=== PATIENT | male | born 1965 | race Caucasian/White ===

== ENCOUNTER 2018-01-19 13:13 | Inpatient (IN) | payer OTHER ==
[~2018-01-19] VITALS: Ht 175.3 cm; Wt 63.8 kg
[~2018-01-19 13:13] MED LIST: CITA-106 PO; DIVA500T52 PO; DOCU100C33 PO; LEVO50TA4 PO; OLAN15TA2 PO; OXYB5 PO; PANT40TA25 PO; QUET200T PO; SIMV20TA6 PO
[2018-01-19] MEDS ORDERED: SODIUM CHLORIDE 0.9% 1,000 ML IV ONE ×3 (14:01→16:00)
[2018-01-19 14:14] LABS: GLUCOSE,POINT OF CARE 96 MG/DL (70-110)
[2018-01-19] MEDS ORDERED: ACETAMINOPHEN 1000 MG/ISO-OSM 100 ML IV ONE (14:15)
[2018-01-19 14:46] LABS: BASOPHILS % (AUTO) 0.4 % (0.0-2.0); EOSINOPHILS % (AUTO) 0.2 % (1.0-6.0); HEMOGLOBIN 13.2 g/dL (13.5-17.5); LYMPHOCYTES # (AUTO) 1.3 K/uL (1.0-4.8); LYMPHOCYTES % (AUTO) 9.3 % (22.0-44.0); MEAN CORPUSCULAR HEMOGLOBIN 31.9 pg (26.0-34.0); MEAN CORPUSCULAR VOLUME 97 fL (80-100); MONOCYTES # (AUTO) 0.4 K/uL (0.1-1.0); MONOCYTES % (AUTO) 3.2 % (2.0-9.0); PLATELET COUNT (AUTO) 227 K/uL (150-450); RED BLOOD CELL COUNT(AUTO) 4.13 MIL/uL (4.50-5.90)
[2018-01-19 14:49] LABS: NEUTROPHILS % (AUTO) 86.9 % (40.0-70.0)
[2018-01-19 14:58] LABS: ANION GAP 10 mmol/L (8-16); CALCIUM, TOTAL 9.3 mg/dL (8.8-10.5); CARBON DIOXIDE 26 mmol/L (22-29); CHLORIDE 101 mmol/L (98-107); CREATININE 1.09 mg/dL (0.60-1.30); GLOMERULAR FILTR. RATE CALC > 60 mL/min (>60); GLUCOSE,RANDOM 74 mg/dL (70-110); POTASSIUM 3.9 mmol/L (3.5-5.1); SODIUM SERUM 137 mmol/L (136-145); UREA NITROGEN, BLOOD 13 mg/dL (7-18)
[2018-01-19 15:05] LABS: ALANINE AMINOTRANSFERASE 22 U/L (12-78); ALBUMIN 2.4 g/dL (3.4-5.0); ALKALINE PHOSPHATASE 117 U/L (46-116); ASPARTATE AMINOTRANSFERASE 16 U/L (15-37); BILIRUBIN,TOTAL 0.3 mg/dL (0.1-1.0); TOTAL PROTEIN, SERUM 6.7 g/dL (6.4-8.2)
[2018-01-19 15:10] LABS: B-TYPE NATRIURETIC PEPTIDE 104 pg/mL (0-100)
[2018-01-19] MEDS ORDERED: PIPERACILLIN/TAZO 3.375 GM/D5W 50 ML IV ONE (15:15)
[2018-01-19] MEDS ORDERED: VANCOMYCIN HCL 1 GM/D5% WATER 200 ML IV ONE (15:15)
[2018-01-19 15:23] LABS: APPEARANCE,URINE CLOUDY (CLEAR); BILIRUBIN,URINE NEGATIVE (NEGATIVE); GLUCOSE, URINE (UA) NEGATIVE (NEGATIVE); KETONES,URINE NEGATIVE (NEGATIVE); LEUKOCYTE ESTERASE ,URINE LARGE (NEGATIVE); NITRATE,URINE POSITIVE (NEGATIVE); OCCULT BLOOD,URINE MODERATE (NEGATIVE); PH,URINE 6.5 (5.0-8.0); PROTEIN,URINE SEE CONFIRM (NEGATIVE)
[2018-01-19 15:27] LABS: INR 1.1 (0.9-1.1); PROTHROMBIN TIME 11.1 SEC (9.4-11.6)
[2018-01-19 15:55] LABS: SULFOSALICYLIC ACID,URINE 3+ (Negative)
[2018-01-19 15:56] LABS: WBC,URINE 51-100 /HPF (0-5)
[2018-01-19 15:57] LABS: BACTERIA,URINE Many /HPF (None Seen); SQUAMOUS EPITHELIAL CELL,UR Rare /LPF (None Seen)
[2018-01-19] MEDS ORDERED: ACETAMINOPHEN 650 MG RECTAL SUPPOSITORY PR ONE (16:00)
[2018-01-19] MEDS ORDERED: ONDANSETRON HCL 4 MG/2 ML VIAL IVP PRN ×2 (16:30→18:00)
[2018-01-19] MEDS ORDERED: ACETAMINOPHEN 325 MG TABLET PO PRN (16:30)
[2018-01-19] MEDS ORDERED: 0.9% SODIUM CHLORIDE 10 ML SYRINGE IVP PRN (16:30)
[2018-01-19 18:00] VITALS: BP 105/46
[2018-01-19] MEDS ORDERED: HYDROCODONE/ACETAMINOPHEN 5-325 MG TABLET PO PRN (18:00)
[2018-01-19] MEDS ORDERED: ZOLPIDEM TARTRATE 5 MG TABLET PO PRN (18:00)
[2018-01-19] MEDS ORDERED: MORPHINE SULFATE 4 MG/ML SYRINGE IVP PRN (18:00)
[2018-01-19] MEDS ORDERED: BISACODYL 10 MG RECTAL RECTAL SUPPOSITORY PR PRN (18:00)
[2018-01-19 19:13] LABS: ABG A-A DIFF O2 56.5 mmHg (10-20.0); ABG BASE EXCESS -4.7 mmol/L (-2.0-3.0); ABG CARBOXYHEMOGLOBIN 2.1 % (0.0-1.5); ABG HCO3 21.2 mmol/L (22.0-26.0); ABG METHEMOGLOBIN 0.1 % (0.0-1.5); ABG OXYGEN CONTENT 16.6 mL/dL (15.0-23.0); ABG OXYHEMOGLOBIN 95.8 % (94.0-100.0); ABG PCO2 36 mmHg (35-45); ABG PH 7.375 (7.35-7.450); ABG TOTAL HEMOGLOBIN 12.2 G/dL (12.0-18.0); O2 DEVICE,BLOOD GAS CANNULA (ROOM AIR); PO2, ARTERIAL BG 114.5 mmHg (84.0-92.0); SITE, BLOOD GAS RT RADIAL; SOURCE, BLOOD GAS ARTERIAL; TEMPERATURE, FAHRENHEIT, BG 100.3 FAHREN (96.0-98.6)
[2018-01-19 20:00] VITALS: BP 95/50
[2018-01-19] MEDS: DOCUSATE SODIUM 100 MG CAPSULE PO SCH (20:42)
[2018-01-19] MEDS: SODIUM CHLORIDE 0.9% 1,000 ML IV SCH (20:42)
[2018-01-19] MEDS: PIPERACILLIN/TAZO 3.375 GM/D5W 50 ML IV SCH (22:47)
[2018-01-19] MEDS: HEPARIN SODIUM,PORCINE 5,000 UNITS/ML VIAL SQ SCH (23:50)
[2018-01-20] VITALS (7 sets, daily range): BP systolic 94–126; BP diastolic 47–64
[2018-01-20] MEDS: PIPERACILLIN/TAZO 3.375 GM/D5W 50 ML IV SCH (04:29)
[2018-01-20] MEDS ORDERED: VANCOMYCIN HCL 1.25 GM in DEXTROSE 5%-WATER 250 ML IV ONE (07:30)
[2018-01-20] MEDS ORDERED: PIPERACILLIN/TAZO 3.375 GM/D5W 50 ML IV SCH (09:00)
[2018-01-20 09:03] LABS: BASOPHILS % (AUTO) 0.1 % (0.0-2.0); EOSINOPHILS % (AUTO) 0.2 % (1.0-6.0); HEMATOCRIT 40.4 % (41-53); HEMOGLOBIN 13.1 g/dL (13.5-17.5); LYMPHOCYTES # (AUTO) 1.8 K/uL (1.0-4.8); MEAN CORPUSCULAR HEMOGLOBIN 31.9 pg (26.0-34.0); MEAN CORPUSCULAR HGB CONC 32.4 G/dL (31.0-37.0); MEAN CORPUSCULAR VOLUME 98 fL (80-100); MONOCYTES # (AUTO) 2.9 K/uL (0.1-1.0); MONOCYTES % (AUTO) 13.2 % (2.0-9.0); NEUTROPHILS # (AUTO) 17.2 K/uL (1.8-7.7); NEUTROPHILS % (AUTO) 78.5 % (40.0-70.0); PLATELET COUNT (AUTO) 189 K/uL (150-450); RED BLOOD CELL COUNT(AUTO) 4.11 MIL/uL (4.50-5.90); RED CELL DISTRIBUTION WIDTH 15.2 % (11.5-14.5)
[2018-01-20 09:14] LABS: ANION GAP 7 mmol/L (8-16); CALCIUM, TOTAL 8.3 mg/dL (8.8-10.5); CARBON DIOXIDE 26 mmol/L (22-29); CHLORIDE 110 mmol/L (98-107); CREATININE 1.18 mg/dL (0.60-1.30); GLOMERULAR FILTR. RATE CALC > 60 mL/min (>60); GLUCOSE,RANDOM 97 mg/dL (70-110); POTASSIUM 4.7 mmol/L (3.5-5.1); SODIUM SERUM 143 mmol/L (136-145); UREA NITROGEN, BLOOD 13 mg/dL (7-18)
[2018-01-20 09:21] LABS: ALANINE AMINOTRANSFERASE 25 U/L (12-78); ALBUMIN 1.9 g/dL (3.4-5.0); ALKALINE PHOSPHATASE 118 U/L (46-116); ASPARTATE AMINOTRANSFERASE 31 U/L (15-37); BILIRUBIN,TOTAL 0.3 mg/dL (0.1-1.0); TOTAL PROTEIN, SERUM 5.6 g/dL (6.4-8.2)
[2018-01-20] MEDS: PANTOPRAZOLE SODIUM 40 MG/VIAL IVP SCH (09:57)
[2018-01-20] MEDS: HEPARIN SODIUM,PORCINE 5,000 UNITS/ML VIAL SQ SCH ×2 (09:58→16:12)
[2018-01-20] MEDS: ACETAMINOPHEN 325 MG TABLET PO PRN ×2 (09:59→20:26)
[2018-01-20] MEDS: DOCUSATE SODIUM 100 MG CAPSULE PO SCH ×2 (09:59→20:26)
[2018-01-20] MEDS: SODIUM CHLORIDE 0.9% 1,000 ML IV SCH (11:01)
[2018-01-20] MEDS: VANCOMYCIN HCL 1 GM/D5% WATER 200 ML IV SCH (18:47)
[2018-01-21] VITALS (7 sets, daily range): BP systolic 116–144; BP diastolic 56–78
[2018-01-21] MEDS: HEPARIN SODIUM,PORCINE 5,000 UNITS/ML VIAL SQ SCH ×4 (00:20→23:30)
[2018-01-21] MEDS: VANCOMYCIN HCL 1 GM/D5% WATER 200 ML IV SCH ×2 (06:09→18:15)
[2018-01-21 06:10] LABS: BASOPHILS % (AUTO) 0.1 % (0.0-2.0); EOSINOPHILS % (AUTO) 0.3 % (1.0-6.0); HEMATOCRIT 33.9 % (41-53); HEMOGLOBIN 11.6 g/dL (13.5-17.5); LYMPHOCYTES # (AUTO) 1.6 K/uL (1.0-4.8); LYMPHOCYTES % (AUTO) 7.7 % (22.0-44.0); MEAN CORPUSCULAR HEMOGLOBIN 33.6 pg (26.0-34.0); MEAN CORPUSCULAR HGB CONC 34.2 G/dL (31.0-37.0); MEAN CORPUSCULAR VOLUME 98 fL (80-100); MONOCYTES # (AUTO) 2.8 K/uL (0.1-1.0); MONOCYTES % (AUTO) 13.6 % (2.0-9.0); NEUTROPHILS # (AUTO) 15.9 K/uL (1.8-7.7); NEUTROPHILS % (AUTO) 78.3 % (40.0-70.0); PLATELET COUNT (AUTO) 157 K/uL (150-450); RED BLOOD CELL COUNT(AUTO) 3.45 MIL/uL (4.50-5.90); RED CELL DISTRIBUTION WIDTH 14.9 % (11.5-14.5)
[2018-01-21 06:23] LABS: ALANINE AMINOTRANSFERASE 24 U/L (12-78); ALBUMIN 1.7 g/dL (3.4-5.0); ALKALINE PHOSPHATASE 121 U/L (46-116); ANION GAP 8 mmol/L (8-16); ASPARTATE AMINOTRANSFERASE 21 U/L (15-37); BILIRUBIN,TOTAL 0.3 mg/dL (0.1-1.0); CALCIUM, TOTAL 8.3 mg/dL (8.8-10.5); CARBON DIOXIDE 26 mmol/L (22-29); CHLORIDE 109 mmol/L (98-107); CREATININE 1.11 mg/dL (0.60-1.30); GLOMERULAR FILTR. RATE CALC > 60 mL/min (>60); GLUCOSE,RANDOM 99 mg/dL (70-110); POTASSIUM 3.6 mmol/L (3.5-5.1); SODIUM SERUM 143 mmol/L (136-145); TOTAL PROTEIN, SERUM 5.3 g/dL (6.4-8.2); UREA NITROGEN, BLOOD 15 mg/dL (7-18)
[2018-01-21] MEDS: DOCUSATE SODIUM 100 MG CAPSULE PO SCH ×2 (09:18→20:22)
[2018-01-21] MEDS: PANTOPRAZOLE SODIUM 40 MG/VIAL IVP SCH (09:18)
[2018-01-21] MEDS: SODIUM CHLORIDE 0.9% 1,000 ML IV SCH (12:18)
[2018-01-21] MEDS: IPRATROPIUM BROMIDE 0.5 MG/2.5 ML NEB SOLUTION NEB PRN (16:21)
[2018-01-21] MEDS: ALBUTEROL SULFATE 2.5 MG/0.5 ML NEB SOLUTION NEB PRN (16:21)
[2018-01-21] MEDS: MAGNESIUM HYDROXIDE SUSPENSION 30 ML UDCUP PO PRN (16:39)
[2018-01-21] MEDS: PIPERACILLIN/TAZO 3.375 GM/D5W 50 ML IV SCH (20:19)
[2018-01-21] MEDS: MetroNIDAZOLE 500 MG/NACL 100 ML IV SCH (20:23)
[2018-01-22] MEDS: PIPERACILLIN/TAZO 3.375 GM/D5W 50 ML IV SCH ×4 (02:34→20:07)
[2018-01-22] MEDS: ALBUTEROL SULFATE 2.5 MG/0.5 ML NEB SOLUTION NEB PRN ×2 (03:13→17:05)
[2018-01-22] MEDS: IPRATROPIUM BROMIDE 0.5 MG/2.5 ML NEB SOLUTION NEB PRN ×2 (03:14→17:05)
[2018-01-22 04:38] VITALS: BP 141/76
[2018-01-22] MEDS: MetroNIDAZOLE 500 MG/NACL 100 ML IV SCH (04:47)
[2018-01-22 06:27] LABS: BASOPHILS % (AUTO) 0.2 % (0.0-2.0); EOSINOPHILS % (AUTO) 0.8 % (1.0-6.0); HEMATOCRIT 33.4 % (41-53); HEMOGLOBIN 11.3 g/dL (13.5-17.5); LYMPHOCYTES # (AUTO) 1.6 K/uL (1.0-4.8); LYMPHOCYTES % (AUTO) 6.5 % (22.0-44.0); MEAN CORPUSCULAR HEMOGLOBIN 32.8 pg (26.0-34.0); MEAN CORPUSCULAR VOLUME 97 fL (80-100); MONOCYTES # (AUTO) 2.4 K/uL (0.1-1.0); MONOCYTES % (AUTO) 9.6 % (2.0-9.0); NEUTROPHILS # (AUTO) 20.6 K/uL (1.8-7.7); NEUTROPHILS % (AUTO) 82.9 % (40.0-70.0); PLATELET COUNT (AUTO) 174 K/uL (150-450); RED BLOOD CELL COUNT(AUTO) 3.46 MIL/uL (4.50-5.90); RED CELL DISTRIBUTION WIDTH 15.2 % (11.5-14.5)
[2018-01-22] MEDS: VANCOMYCIN HCL 1 GM/D5% WATER 200 ML IV SCH (06:29)
[2018-01-22 06:51] LABS: ALANINE AMINOTRANSFERASE 25 U/L (12-78); ALBUMIN 1.7 g/dL (3.4-5.0); ALKALINE PHOSPHATASE 155 U/L (46-116); ANION GAP 6 mmol/L (8-16); ASPARTATE AMINOTRANSFERASE 20 U/L (15-37); BILIRUBIN,TOTAL 0.5 mg/dL (0.1-1.0); CALCIUM, TOTAL 8.3 mg/dL (8.8-10.5); CARBON DIOXIDE 28 mmol/L (22-29); CHLORIDE 108 mmol/L (98-107); CREATININE 1.01 mg/dL (0.60-1.30); GLOMERULAR FILTR. RATE CALC > 60 mL/min (>60); GLUCOSE,RANDOM 102 mg/dL (70-110); POTASSIUM 3.9 mmol/L (3.5-5.1); SODIUM SERUM 142 mmol/L (136-145); TOTAL PROTEIN, SERUM 5.5 g/dL (6.4-8.2); UREA NITROGEN, BLOOD 14 mg/dL (7-18)
[2018-01-22 07:55] LABS: VANCOMYCIN,RANDOM 12.3 mcg/mL (25.0-50.0)
[2018-01-22] MEDS: MAGNESIUM HYDROXIDE SUSPENSION 30 ML UDCUP PO PRN (07:56)
[2018-01-22] MEDS: HEPARIN SODIUM,PORCINE 5,000 UNITS/ML VIAL SQ SCH ×3 (07:56→23:17)
[2018-01-22] MEDS: DOCUSATE SODIUM 100 MG CAPSULE PO SCH ×2 (07:56→21:42)
[2018-01-22] MEDS: PANTOPRAZOLE SODIUM 40 MG/VIAL IVP SCH (07:56)
[2018-01-22 08:03] VITALS: BP 138/78
[2018-01-22 11:00] VITALS: BP 134/68
[2018-01-22 15:10] VITALS: BP 132/64
[2018-01-22] MEDS ORDERED: VANCOMYCIN HCL 1 GM/D5% WATER 200 ML IV SCH (16:00)
[2018-01-22 19:30] VITALS: BP 131/66
[2018-01-22] MEDS ORDERED: ZOLPIDEM TARTRATE 5 MG TABLET PO PRN (20:00)
[2018-01-22] MEDS ORDERED: LORazepam 1 MG TABLET PO PRN (20:00)
[2018-01-22] MEDS ORDERED: QUEtiapine FUMARATE 100 MG TABLET PO PRN (20:00)
[2018-01-22] MEDS: DIVALPROEX SODIUM 500 MG ER TABLET PO SCH (21:42)
[2018-01-22] MEDS: OLANZapine 10 MG TABLET PO SCH (21:42)
[2018-01-22 23:30] VITALS: BP 136/62
[2018-01-23] MEDS ORDERED: SODIUM CHLORIDE 0.9% 500 ML IV ONE (01:10)
[2018-01-23] MEDS: PIPERACILLIN/TAZO 3.375 GM/D5W 50 ML IV SCH ×3 (01:12→14:07)
[2018-01-23 03:15] VITALS: BP 134/67
[2018-01-23 07:00] LABS: BASOPHILS % (AUTO) 0.4 % (0.0-2.0); HEMATOCRIT 33.7 % (41-53); HEMOGLOBIN 11.3 g/dL (13.5-17.5); LYMPHOCYTES # (AUTO) 2.3 K/uL (1.0-4.8); LYMPHOCYTES % (AUTO) 9.8 % (22.0-44.0); MEAN CORPUSCULAR HEMOGLOBIN 31.9 pg (26.0-34.0); MEAN CORPUSCULAR HGB CONC 33.6 G/dL (31.0-37.0); MEAN CORPUSCULAR VOLUME 95 fL (80-100); MONOCYTES # (AUTO) 2.3 K/uL (0.1-1.0); NEUTROPHILS # (AUTO) 18.4 K/uL (1.8-7.7); NEUTROPHILS % (AUTO) 78.8 % (40.0-70.0); PLATELET COUNT (AUTO) 216 K/uL (150-450); RED BLOOD CELL COUNT(AUTO) 3.55 MIL/uL (4.50-5.90); RED CELL DISTRIBUTION WIDTH 14.8 % (11.5-14.5)
[2018-01-23 07:25] LABS: ALANINE AMINOTRANSFERASE 27 U/L (12-78); ALBUMIN 1.7 g/dL (3.4-5.0); ALKALINE PHOSPHATASE 149 U/L (46-116); ANION GAP 6 mmol/L (8-16); ASPARTATE AMINOTRANSFERASE 27 U/L (15-37); BILIRUBIN,TOTAL 0.5 mg/dL (0.1-1.0); CALCIUM, TOTAL 8.4 mg/dL (8.8-10.5); CARBON DIOXIDE 30 mmol/L (22-29); CHLORIDE 107 mmol/L (98-107); CREATININE 1.12 mg/dL (0.60-1.30); GLOMERULAR FILTR. RATE CALC > 60 mL/min (>60); GLUCOSE,RANDOM 90 mg/dL (70-110); POTASSIUM 3.8 mmol/L (3.5-5.1); SODIUM SERUM 143 mmol/L (136-145); TOTAL PROTEIN, SERUM 5.8 g/dL (6.4-8.2); UREA NITROGEN, BLOOD 15 mg/dL (7-18)
[2018-01-23] MEDS: HEPARIN SODIUM,PORCINE 5,000 UNITS/ML VIAL SQ SCH ×3 (07:51→23:18)
[2018-01-23] MEDS: CITALOPRAM HYDROBROMIDE 20 MG TABLET PO SCH (07:52)
[2018-01-23] MEDS: DOCUSATE SODIUM 100 MG CAPSULE PO SCH ×2 (07:52→19:50)
[2018-01-23 09:28] VITALS: BP 131/64
[2018-01-23 12:05] VITALS: BP 134/68
[2018-01-23] MEDS: IPRATROPIUM BROMIDE 0.5 MG/2.5 ML NEB SOLUTION NEB PRN (12:42)
[2018-01-23] MEDS: ALBUTEROL SULFATE 2.5 MG/0.5 ML NEB SOLUTION NEB PRN (12:42)
[2018-01-23 15:05] VITALS: BP 141/78
[2018-01-23] MEDS: CEFUROXIME SODIUM 1.5 GM in DEXTROSE 5%-WATER 50 ML IV SCH (19:50)
[2018-01-23] MEDS: MetroNIDAZOLE 500 MG TABLET PO SCH (19:50)
[2018-01-23] MEDS: OLANZapine 10 MG TABLET PO SCH (19:50)
[2018-01-23] MEDS: DIVALPROEX SODIUM 500 MG ER TABLET PO SCH (19:51)
[2018-01-23 20:00] VITALS: BP 143/80
[2018-01-23 23:15] VITALS: BP 124/78
[2018-01-24] MEDS: CEFUROXIME SODIUM 1.5 GM in DEXTROSE 5%-WATER 50 ML IV SCH ×3 (04:00→20:21)
[2018-01-24 04:30] VITALS: BP 138/79
[2018-01-24 05:59] LABS: BASOPHILS % (AUTO) 0.3 % (0.0-2.0); EOSINOPHILS % (AUTO) 0.7 % (1.0-6.0); HEMOGLOBIN 11.5 g/dL (13.5-17.5); MEAN CORPUSCULAR HEMOGLOBIN 32.2 pg (26.0-34.0); MEAN CORPUSCULAR HGB CONC 33.8 G/dL (31.0-37.0); MEAN CORPUSCULAR VOLUME 95 fL (80-100); MONOCYTES # (AUTO) 2.3 K/uL (0.1-1.0); MONOCYTES % (AUTO) 10.3 % (2.0-9.0); NEUTROPHILS % (AUTO) 79.7 % (40.0-70.0); PLATELET COUNT (AUTO) 266 K/uL (150-450); RED BLOOD CELL COUNT(AUTO) 3.57 MIL/uL (4.50-5.90)
[2018-01-24 06:13] LABS: ALANINE AMINOTRANSFERASE 26 U/L (12-78); ALBUMIN 1.7 g/dL (3.4-5.0); ALKALINE PHOSPHATASE 137 U/L (46-116); ANION GAP 7 mmol/L (8-16); ASPARTATE AMINOTRANSFERASE 27 U/L (15-37); BILIRUBIN,TOTAL 0.4 mg/dL (0.1-1.0); CALCIUM, TOTAL 8.2 mg/dL (8.8-10.5); CARBON DIOXIDE 29 mmol/L (22-29); CHLORIDE 108 mmol/L (98-107); CREATININE 1.11 mg/dL (0.60-1.30); GLOMERULAR FILTR. RATE CALC > 60 mL/min (>60); GLUCOSE,RANDOM 103 mg/dL (70-110); POTASSIUM 3.5 mmol/L (3.5-5.1); SODIUM SERUM 144 mmol/L (136-145); TOTAL PROTEIN, SERUM 5.8 g/dL (6.4-8.2); UREA NITROGEN, BLOOD 15 mg/dL (7-18); VANCOMYCIN,RANDOM 3.1 mcg/mL (25.0-50.0)
[2018-01-24 08:01] VITALS: BP 136/73
[2018-01-24] MEDS: CITALOPRAM HYDROBROMIDE 20 MG TABLET PO SCH (08:55)
[2018-01-24] MEDS: MetroNIDAZOLE 500 MG TABLET PO SCH ×3 (08:55→20:21)
[2018-01-24] MEDS: HEPARIN SODIUM,PORCINE 5,000 UNITS/ML VIAL SQ SCH ×3 (08:55→23:06)
[2018-01-24] MEDS: DOCUSATE SODIUM 100 MG CAPSULE PO SCH ×2 (08:55→20:21)
[2018-01-24 12:00] VITALS: BP 132/71
[2018-01-24 14:48] VITALS: BP 123/59
[2018-01-24 19:55] VITALS: BP 123/65
[2018-01-24] MEDS: DIVALPROEX SODIUM 500 MG ER TABLET PO SCH (20:21)
[2018-01-24] MEDS: OLANZapine 10 MG TABLET PO SCH (20:21)
[2018-01-24 23:41] VITALS: BP 144/83
[2018-01-25 04:35] VITALS: BP 142/78
[2018-01-25] MEDS: CEFUROXIME SODIUM 1.5 GM in DEXTROSE 5%-WATER 50 ML IV SCH ×3 (04:37→20:46)
[2018-01-25 05:57] LABS: BASOPHILS % (AUTO) 0.2 % (0.0-2.0); EOSINOPHILS % (AUTO) 0.9 % (1.0-6.0); HEMATOCRIT 34.7 % (41-53); HEMOGLOBIN 11.6 g/dL (13.5-17.5); LYMPHOCYTES # (AUTO) 2.8 K/uL (1.0-4.8); LYMPHOCYTES % (AUTO) 11.7 % (22.0-44.0); MEAN CORPUSCULAR HEMOGLOBIN 31.6 pg (26.0-34.0); MEAN CORPUSCULAR HGB CONC 33.3 G/dL (31.0-37.0); MEAN CORPUSCULAR VOLUME 95 fL (80-100); MONOCYTES # (AUTO) 2.3 K/uL (0.1-1.0); MONOCYTES % (AUTO) 9.7 % (2.0-9.0); NEUTROPHILS # (AUTO) 18.2 K/uL (1.8-7.7); NEUTROPHILS % (AUTO) 77.5 % (40.0-70.0); PLATELET COUNT (AUTO) 326 K/uL (150-450); RED BLOOD CELL COUNT(AUTO) 3.66 MIL/uL (4.50-5.90)
[2018-01-25 06:10] LABS: ALANINE AMINOTRANSFERASE 20 U/L (12-78); ALBUMIN 1.7 g/dL (3.4-5.0); ALKALINE PHOSPHATASE 131 U/L (46-116); ANION GAP 7 mmol/L (8-16); ASPARTATE AMINOTRANSFERASE 14 U/L (15-37); BILIRUBIN,TOTAL 0.3 mg/dL (0.1-1.0); CALCIUM, TOTAL 8.5 mg/dL (8.8-10.5); CARBON DIOXIDE 29 mmol/L (22-29); CHLORIDE 108 mmol/L (98-107); GLOMERULAR FILTR. RATE CALC > 60 mL/min (>60); GLUCOSE,RANDOM 101 mg/dL (70-110); POTASSIUM 3.6 mmol/L (3.5-5.1); SODIUM SERUM 144 mmol/L (136-145); TOTAL PROTEIN, SERUM 6.1 g/dL (6.4-8.2); UREA NITROGEN, BLOOD 16 mg/dL (7-18)
[2018-01-25 07:42] VITALS: BP 143/73
[2018-01-25] MEDS: MetroNIDAZOLE 500 MG TABLET PO SCH ×3 (10:02→20:46)
[2018-01-25] MEDS: HEPARIN SODIUM,PORCINE 5,000 UNITS/ML VIAL SQ SCH ×3 (10:02→23:46)
[2018-01-25] MEDS: CITALOPRAM HYDROBROMIDE 20 MG TABLET PO SCH (10:02)
[2018-01-25] MEDS: DOCUSATE SODIUM 100 MG CAPSULE PO SCH ×2 (10:02→20:46)
[2018-01-25 11:08] VITALS: BP 129/69
[2018-01-25 15:18] VITALS: BP 123/60
[2018-01-25] MEDS ORDERED: SODIUM CHLORIDE 0.9% 100 ML ONE (16:24)
[2018-01-25] MEDS ORDERED: IOVERSOL 320 MG/ML 100 ML VIAL ONE (16:24)
[2018-01-25] MEDS ORDERED: BARIUM SULFATE 0.1% SUSPENSION 450 ML BOTTLE ONE ×2 (16:25)
[2018-01-25 19:28] VITALS: BP 139/82
[2018-01-25] MEDS: DIVALPROEX SODIUM 500 MG ER TABLET PO SCH (20:46)
[2018-01-25] MEDS: OLANZapine 10 MG TABLET PO SCH (20:46)
[2018-01-25 23:57] VITALS: BP 135/73
[2018-01-26 03:18] VITALS: BP 130/72
[2018-01-26] MEDS: CEFUROXIME SODIUM 1.5 GM in DEXTROSE 5%-WATER 50 ML IV SCH ×3 (03:32→20:56)
[2018-01-26 05:44] LABS: BASOPHILS % (AUTO) 0.9 % (0.0-2.0); EOSINOPHILS % (AUTO) 1.1 % (1.0-6.0); HEMATOCRIT 35.2 % (41-53); HEMOGLOBIN 11.8 g/dL (13.5-17.5); LYMPHOCYTES # (AUTO) 2.7 K/uL (1.0-4.8); MEAN CORPUSCULAR HEMOGLOBIN 31.4 pg (26.0-34.0); MEAN CORPUSCULAR HGB CONC 33.7 G/dL (31.0-37.0); MEAN CORPUSCULAR VOLUME 93 fL (80-100); MONOCYTES # (AUTO) 1.8 K/uL (0.1-1.0); MONOCYTES % (AUTO) 8.7 % (2.0-9.0); NEUTROPHILS % (AUTO) 76.3 % (40.0-70.0); PLATELET COUNT (AUTO) 401 K/uL (150-450); RED BLOOD CELL COUNT(AUTO) 3.77 MIL/uL (4.50-5.90); RED CELL DISTRIBUTION WIDTH 15.2 % (11.5-14.5)
[2018-01-26 06:03] LABS: ALANINE AMINOTRANSFERASE 22 U/L (12-78); ALBUMIN 1.9 g/dL (3.4-5.0); ALKALINE PHOSPHATASE 120 U/L (46-116); ANION GAP 6 mmol/L (8-16); ASPARTATE AMINOTRANSFERASE 19 U/L (15-37); BILIRUBIN,TOTAL 0.3 mg/dL (0.1-1.0); CALCIUM, TOTAL 8.3 mg/dL (8.8-10.5); CARBON DIOXIDE 31 mmol/L (22-29); CHLORIDE 108 mmol/L (98-107); GLOMERULAR FILTR. RATE CALC > 60 mL/min (>60); GLUCOSE,RANDOM 96 mg/dL (70-110); POTASSIUM 3.9 mmol/L (3.5-5.1); SODIUM SERUM 145 mmol/L (136-145); TOTAL PROTEIN, SERUM 6.4 g/dL (6.4-8.2); UREA NITROGEN, BLOOD 16 mg/dL (7-18)
[2018-01-26 07:29] VITALS: BP 133/82
[2018-01-26] MEDS: MetroNIDAZOLE 500 MG TABLET PO SCH ×3 (08:58→20:47)
[2018-01-26] MEDS: CITALOPRAM HYDROBROMIDE 20 MG TABLET PO SCH (08:58)
[2018-01-26] MEDS: DOCUSATE SODIUM 100 MG CAPSULE PO SCH ×2 (08:58→20:46)
[2018-01-26] MEDS: HEPARIN SODIUM,PORCINE 5,000 UNITS/ML VIAL SQ SCH ×2 (08:59→17:34)
[2018-01-26 10:45] VITALS: BP 139/72
[2018-01-26 15:24] VITALS: BP 110/64
[2018-01-26 20:13] VITALS: BP 131/82
[2018-01-26] MEDS: DIVALPROEX SODIUM 500 MG ER TABLET PO SCH (20:47)
[2018-01-26] MEDS: OLANZapine 10 MG TABLET PO SCH (20:47)
[2018-01-27] VITALS (7 sets, daily range): BP systolic 125–141; BP diastolic 64–80
[2018-01-27] MEDS: HEPARIN SODIUM,PORCINE 5,000 UNITS/ML VIAL SQ SCH ×4 (00:51→23:42)
[2018-01-27] MEDS: CEFUROXIME SODIUM 1.5 GM in DEXTROSE 5%-WATER 50 ML IV SCH ×3 (04:59→20:01)
[2018-01-27 06:55] LABS: ALANINE AMINOTRANSFERASE 21 U/L (12-78); ALBUMIN 2.1 g/dL (3.4-5.0); ALKALINE PHOSPHATASE 112 U/L (46-116); ANION GAP 6 mmol/L (8-16); ASPARTATE AMINOTRANSFERASE 19 U/L (15-37); BILIRUBIN,TOTAL 0.3 mg/dL (0.1-1.0); CALCIUM, TOTAL 8.7 mg/dL (8.8-10.5); CARBON DIOXIDE 31 mmol/L (22-29); CHLORIDE 107 mmol/L (98-107); CREATININE 1.08 mg/dL (0.60-1.30); GLOMERULAR FILTR. RATE CALC > 60 mL/min (>60); GLUCOSE,RANDOM 97 mg/dL (70-110); POTASSIUM 4.1 mmol/L (3.5-5.1); SODIUM SERUM 144 mmol/L (136-145); TOTAL PROTEIN, SERUM 6.7 g/dL (6.4-8.2); UREA NITROGEN, BLOOD 20 mg/dL (7-18); VALPROIC ACID 38 mcg/mL (50-100)
[2018-01-27 07:00] LABS: BASOPHILS % (AUTO) 0.7 % (0.0-2.0); EOSINOPHILS % (AUTO) 1.6 % (1.0-6.0); HEMATOCRIT 37.2 % (41-53); HEMOGLOBIN 12.2 g/dL (13.5-17.5); LYMPHOCYTES # (AUTO) 2.8 K/uL (1.0-4.8); LYMPHOCYTES % (AUTO) 17.9 % (22.0-44.0); MEAN CORPUSCULAR HGB CONC 32.8 G/dL (31.0-37.0); MEAN CORPUSCULAR VOLUME 95 fL (80-100); MONOCYTES # (AUTO) 1.7 K/uL (0.1-1.0); MONOCYTES % (AUTO) 10.9 % (2.0-9.0); NEUTROPHILS # (AUTO) 10.6 K/uL (1.8-7.7); NEUTROPHILS % (AUTO) 68.9 % (40.0-70.0); PLATELET COUNT (AUTO) 451 K/uL (150-450); RED BLOOD CELL COUNT(AUTO) 3.93 MIL/uL (4.50-5.90); RED CELL DISTRIBUTION WIDTH 15.7 % (11.5-14.5)
[2018-01-27] MEDS: CITALOPRAM HYDROBROMIDE 20 MG TABLET PO SCH (08:52)
[2018-01-27] MEDS: MetroNIDAZOLE 500 MG TABLET PO SCH ×3 (08:52→20:26)
[2018-01-27] MEDS: DOCUSATE SODIUM 100 MG CAPSULE PO SCH ×2 (08:53→20:26)
[2018-01-27] MEDS: DIVALPROEX SODIUM 500 MG ER TABLET PO SCH (20:29)
[2018-01-27] MEDS: OLANZapine 10 MG TABLET PO SCH (20:29)
[2018-01-28] MEDS ORDERED: SODIUM CHLORIDE 0.9% 500 ML IV ONE (03:14)
[2018-01-28] MEDS: CEFUROXIME SODIUM 1.5 GM in DEXTROSE 5%-WATER 50 ML IV SCH ×3 (04:04→19:56)
[2018-01-28 05:03] VITALS: BP 129/85
[2018-01-28 06:46] LABS: BASOPHILS % (AUTO) 0.3 % (0.0-2.0); EOSINOPHILS % (AUTO) 1.4 % (1.0-6.0); HEMATOCRIT 38.5 % (41-53); LYMPHOCYTES # (AUTO) 2.5 K/uL (1.0-4.8); LYMPHOCYTES % (AUTO) 17.3 % (22.0-44.0); MEAN CORPUSCULAR HEMOGLOBIN 31.7 pg (26.0-34.0); MEAN CORPUSCULAR HGB CONC 33.7 G/dL (31.0-37.0); MEAN CORPUSCULAR VOLUME 94 fL (80-100); MONOCYTES # (AUTO) 1.4 K/uL (0.1-1.0); MONOCYTES % (AUTO) 9.9 % (2.0-9.0); NEUTROPHILS # (AUTO) 10.3 K/uL (1.8-7.7); NEUTROPHILS % (AUTO) 71.1 % (40.0-70.0); PLATELET COUNT (AUTO) 491 K/uL (150-450); RED BLOOD CELL COUNT(AUTO) 4.09 MIL/uL (4.50-5.90); RED CELL DISTRIBUTION WIDTH 15.2 % (11.5-14.5)
[2018-01-28 07:20] VITALS: BP 122/69
[2018-01-28] MEDS: IPRATROPIUM BROMIDE 0.5 MG/2.5 ML NEB SOLUTION NEB PRN (07:49)
[2018-01-28] MEDS: ALBUTEROL SULFATE 2.5 MG/0.5 ML NEB SOLUTION NEB PRN (07:49)
[2018-01-28] MEDS: DOCUSATE SODIUM 100 MG CAPSULE PO SCH ×2 (08:56→20:38)
[2018-01-28] MEDS: MetroNIDAZOLE 500 MG TABLET PO SCH ×3 (08:56→21:00)
[2018-01-28] MEDS: HEPARIN SODIUM,PORCINE 5,000 UNITS/ML VIAL SQ SCH ×3 (08:56→23:32)
[2018-01-28] MEDS: CITALOPRAM HYDROBROMIDE 20 MG TABLET PO SCH (08:56)
[2018-01-28 11:46] VITALS: BP 117/75
[2018-01-28 15:44] VITALS: BP 109/60
[2018-01-28 19:31] VITALS: BP 105/67
[2018-01-28] MEDS: OLANZapine 10 MG TABLET PO SCH (20:38)
[2018-01-28] MEDS ORDERED: DIVALPROEX SODIUM 250 MG ER TABLET PO SCH (21:00)
[2018-01-28 23:49] VITALS: BP 105/66
[2018-01-29] MEDS: CEFUROXIME SODIUM 1.5 GM in DEXTROSE 5%-WATER 50 ML IV SCH ×3 (03:44→20:18)
[2018-01-29 05:30] VITALS: BP 117/74
[2018-01-29 06:34] LABS: BASOPHILS % (AUTO) 0.2 % (0.0-2.0); EOSINOPHILS % (AUTO) 1.3 % (1.0-6.0); HEMOGLOBIN 12.8 g/dL (13.5-17.5); LYMPHOCYTES # (AUTO) 2.4 K/uL (1.0-4.8); LYMPHOCYTES % (AUTO) 17.3 % (22.0-44.0); MEAN CORPUSCULAR HEMOGLOBIN 31.7 pg (26.0-34.0); MEAN CORPUSCULAR HGB CONC 33.7 G/dL (31.0-37.0); MEAN CORPUSCULAR VOLUME 94 fL (80-100); MONOCYTES # (AUTO) 1.3 K/uL (0.1-1.0); MONOCYTES % (AUTO) 9.7 % (2.0-9.0); NEUTROPHILS # (AUTO) 9.7 K/uL (1.8-7.7); NEUTROPHILS % (AUTO) 71.5 % (40.0-70.0); PLATELET COUNT (AUTO) 502 K/uL (150-450); RED BLOOD CELL COUNT(AUTO) 4.05 MIL/uL (4.50-5.90); RED CELL DISTRIBUTION WIDTH 15.8 % (11.5-14.5)
[2018-01-29 08:08] VITALS: BP 113/67
[2018-01-29] MEDS: MetroNIDAZOLE 500 MG TABLET PO SCH ×3 (09:47→20:18)
[2018-01-29] MEDS: HEPARIN SODIUM,PORCINE 5,000 UNITS/ML VIAL SQ SCH ×3 (09:47→23:03)
[2018-01-29] MEDS: DOCUSATE SODIUM 100 MG CAPSULE PO SCH ×2 (09:48→20:18)
[2018-01-29] MEDS: CITALOPRAM HYDROBROMIDE 20 MG TABLET PO SCH (09:48)
[2018-01-29 11:35] VITALS: BP 125/60
[2018-01-29 15:10] VITALS: BP 111/67
[2018-01-29] MEDS: OLANZapine 10 MG TABLET PO SCH (20:18)
[2018-01-29 20:24] VITALS: BP 112/78
[2018-01-29] MEDS ORDERED: DIVALPROEX SODIUM 250 MG ER TABLET PO SCH (21:00)
[2018-01-29 23:50] VITALS: BP 109/64
[2018-01-30] MEDS ORDERED: SODIUM CHLORIDE 0.9% 500 ML IV ONE (03:33)
[2018-01-30] MEDS: CEFUROXIME SODIUM 1.5 GM in DEXTROSE 5%-WATER 50 ML IV SCH ×3 (03:42→20:14)
[2018-01-30 04:12] VITALS: BP 110/70
[2018-01-30 06:07] LABS: BASOPHILS % (AUTO) 0.4 % (0.0-2.0); EOSINOPHILS % (AUTO) 1.2 % (1.0-6.0); HEMATOCRIT 39.4 % (41-53); HEMOGLOBIN 13.2 g/dL (13.5-17.5); LYMPHOCYTES # (AUTO) 2.2 K/uL (1.0-4.8); LYMPHOCYTES % (AUTO) 17.6 % (22.0-44.0); MEAN CORPUSCULAR HEMOGLOBIN 31.7 pg (26.0-34.0); MEAN CORPUSCULAR HGB CONC 33.5 G/dL (31.0-37.0); MEAN CORPUSCULAR VOLUME 95 fL (80-100); MONOCYTES # (AUTO) 1.2 K/uL (0.1-1.0); MONOCYTES % (AUTO) 9.4 % (2.0-9.0); NEUTROPHILS # (AUTO) 8.8 K/uL (1.8-7.7); NEUTROPHILS % (AUTO) 71.4 % (40.0-70.0); PLATELET COUNT (AUTO) 437 K/uL (150-450); RED BLOOD CELL COUNT(AUTO) 4.16 MIL/uL (4.50-5.90); RED CELL DISTRIBUTION WIDTH 15.4 % (11.5-14.5)
[2018-01-30] MEDS: CITALOPRAM HYDROBROMIDE 20 MG TABLET PO SCH (08:25)
[2018-01-30] MEDS: MetroNIDAZOLE 500 MG TABLET PO SCH ×3 (08:25→20:14)
[2018-01-30] MEDS: HEPARIN SODIUM,PORCINE 5,000 UNITS/ML VIAL SQ SCH ×2 (08:25→17:02)
[2018-01-30] MEDS: DOCUSATE SODIUM 100 MG CAPSULE PO SCH ×2 (08:25→20:14)
[2018-01-30 08:28] VITALS: BP 113/67
[2018-01-30 11:27] VITALS: BP 125/78
[2018-01-30 15:45] VITALS: BP 114/78
[2018-01-30] MEDS ORDERED: OLANZapine 5 MG RAPDIS TABLET PO PRN (17:45)
[2018-01-30 19:51] VITALS: BP 116/76
[2018-01-30] MEDS ORDERED: DIVALPROEX SODIUM 500 MG ER TABLET PO SCH (21:00)
[2018-01-30] MEDS ORDERED: OLANZapine 7.5 MG TABLET PO SCH (21:00)
[2018-01-30 23:15] VITALS: BP 121/74
[2018-01-31] MEDS: HEPARIN SODIUM,PORCINE 5,000 UNITS/ML VIAL SQ SCH ×3 (00:13→15:43)
[2018-01-31] MEDS: CEFUROXIME SODIUM 1.5 GM in DEXTROSE 5%-WATER 50 ML IV SCH ×2 (03:33→12:35)
[2018-01-31 04:05] VITALS: BP 118/70
[2018-01-31 08:00] VITALS: BP 105/69
[2018-01-31] MEDS: DOCUSATE SODIUM 100 MG CAPSULE PO SCH (09:35)
[2018-01-31] MEDS: MetroNIDAZOLE 500 MG TABLET PO SCH ×2 (09:35→15:43)
[2018-01-31 11:56] VITALS: BP 114/73
[2018-01-31 16:00] VITALS: BP 112/74
== END 2018-01-31 16:50 | disposition home or self-care (01) | DRG 871 ==
LOC: EMS 13:14 → ICU 17:16 → 6N 01-20 14:00
PROVIDERS: ADMIT Hospitalist; ATTEND Hospitalist
DX: A41.9 Sepsis, unspecified organism (principal); E43 Unspecified severe protein-calorie malnutrition; J69.0 Pneumonitis due to inhalation of food and vomit; G93.41 Metabolic encephalopathy; N39.0 Urinary tract infection, site not specified; F20.0 Paranoid schizophrenia; E03.9 Hypothyroidism, unspecified; E78.5 Hyperlipidemia, unspecified; K21.9 Gastro-esophageal reflux disease without esophagitis; E78.00 Pure hypercholesterolemia, unspecified; F32.9 Major depressive disorder, single episode, unspecified; K59.00 Constipation, unspecified; N32.89 Other specified disorders of bladder; G47.00 Insomnia, unspecified; B96.20 Unspecified Escherichia coli [E. coli] as the cause of diseases classified elsewhere; B96.89 Other specified bacterial agents as the cause of diseases classified elsewhere; H91.90 Unspecified hearing loss, unspecified ear; K52.9 Noninfective gastroenteritis and colitis, unspecified; F17.210 Nicotine dependence, cigarettes, uncomplicated; Z88.8 Allergy status to other drugs, medicaments and biological substances; Z79.899 Other long term (current) drug therapy; Z91.19 Patient's noncompliance with other medical treatment and regimen; Z68.20 Body mass index [BMI] 20.0-20.9, adult
CPT/HCPCS: 51702; 70450; 71250; 82805; 83605; 87040; 87081; 87086; 87205; 93005; 93041; 93306; 93970; 94640; 96365; 96366; 96367; 97116; 97162; 97530; C9113; G0378; J0131; J0697; J1644; J2543; J3370; J3490; J7030; J7040; J7050; J7060

== ENCOUNTER 2023-03-16 20:35 | Inpatient (IN) | payer MEDICARE, MEDICAID ==
[~2023-03-16] VITALS: Ht 172.7 cm; Wt 59.5 kg
[~2023-03-16 20:35] MED LIST changes: -CITA-106 PO; +CITA-144 PO; -DIVA500T52 PO; +DIVA500T53 PO; -OXYB5 PO; +OXYB5TAB20 PO; +PANT-31 PO; -PANT40TA25 PO; +SIMV-43 PO; -SIMV20TA6 PO
[2023-03-17] MEDS ORDERED: LORazepam 1 MG TABLET PO PRN (01:00)
[2023-03-17 01:09] VITALS: RESP 18
[2023-03-17] MEDS ORDERED: INFLUENZA VIRUS VACCINE QVS 2023-24 (6MO+)/PF 60 MCG/0.5 ML SYRINGE IM. ONE (02:00)
[2023-03-17] MEDS ORDERED: PNEUMOCOCCAL VACCINE POLYVALENT 0.5 ML SYRINGE [PPSV23] IM. ONE (02:00)
[2023-03-17] MEDS ORDERED: LOPERAMIDE HCL 2 MG CAPSULE PO PRN (06:15)
[2023-03-17] MEDS ORDERED: MAG HYDROX/ALUMINUM HYD/SIMETH ES 30 ML SUSPENSION UDCUP PO PRN (06:15)
[2023-03-17] MEDS ORDERED: NICOTINE 14 MG/24 HOUR PATCH TD PRN (06:15)
[2023-03-17] MEDS ORDERED: IBUPROFEN 400 MG TABLET PO PRN (06:15)
[2023-03-17] MEDS ORDERED: DOCUSATE SODIUM 100 MG CAPSULE PO PRN (06:15)
[2023-03-17] MEDS ORDERED: ALBUTEROL SULFATE HFA 90 MCG/PUFF 8 GM INHALER IH PRN (06:15)
[2023-03-17] MEDS ORDERED: ONDANSETRON HCL 4 MG TABLET PO PRN (06:15)
[2023-03-17] MEDS ORDERED: ACETAMINOPHEN 325 MG TABLET PO PRN (06:15)
[2023-03-17] MEDS ORDERED: GuaiFENesin/D-METHORPHAN [SUGAR-FREE] 200-20MG/10 ML SYRUP UDCUP PO PRN (06:15)
[2023-03-17] MEDS ORDERED: MAGNESIUM HYDROXIDE SUSPENSION 30 ML UDCUP PO PRN (06:15)
[2023-03-17] MEDS ORDERED: CloNIDine HCL 0.1 MG TABLET PO PRN (06:15)
[2023-03-17] MEDS ORDERED: PETROLATUM,WHITE 28 GM JELLY TP PRN (06:15)
[2023-03-17 08:00] VITALS: BP 129/60; PULSE 64; RESP 18; TEMP 97.4
[2023-03-17] MEDS: NITROFURANTOIN MONOHYD/M-CRYST 100 MG CAPSULE [MACROBID] PO SCH ×2 (10:17→20:58)
[2023-03-17] MEDS: CITALOPRAM HYDROBROMIDE 20 MG TABLET PO SCH (12:36)
[2023-03-17] MEDS: OLANZapine 5 MG TABLET PO SCH (16:40)
[2023-03-17] MEDS: DIVALPROEX SODIUM 500 MG ER TABLET PO SCH (20:58)
[2023-03-17 23:57] VITALS: RESP 18
[2023-03-18] MEDS ORDERED: DEXTROSE 50%-WATER 25 GM/50 ML SYRINGE IVP PRN (06:45)
[2023-03-18] MEDS: CITALOPRAM HYDROBROMIDE 20 MG TABLET PO SCH (08:01)
[2023-03-18] MEDS: OLANZapine 5 MG TABLET PO SCH ×2 (08:01→16:29)
[2023-03-18] MEDS: NITROFURANTOIN MONOHYD/M-CRYST 100 MG CAPSULE [MACROBID] PO SCH ×2 (08:01→20:59)
[2023-03-18 09:25] VITALS: BP 129/78; PULSE 72; RESP 18; TEMP 97.8
[2023-03-18 11:46] LABS: GLUCOMETER DEV NAME(LOC) 3EX.2; GLUCOSE,POINT OF CARE 130 MG/DL (70-110)
[2023-03-18 14:59] LABS: BASOPHILS % (AUTO) 0.6 % (0.0-2.0); EOSINOPHILS % (AUTO) 1.5 % (1.0-6.0); HEMATOCRIT 45.1 % (41-53); HEMOGLOBIN 15.2 g/dL (13.5-17.5); LYMPHOCYTES % (AUTO) 34.6 % (22.0-44.0); MEAN CORPUSCULAR HEMOGLOBIN 30.9 pg (26.0-34.0); MEAN CORPUSCULAR HGB CONC 33.8 G/dL (31.0-37.0); MEAN CORPUSCULAR VOLUME 92 fL (80-100); MONOCYTES # (AUTO) 1.2 K/uL (0.1-1.0); MONOCYTES % (AUTO) 13.5 % (2.0-9.0); NEUTROPHILS # (AUTO) 4.4 K/uL (1.8-7.7); NEUTROPHILS % (AUTO) 49.8 % (40.0-70.0); PLATELET COUNT (AUTO) 200 K/uL (150-450); RED BLOOD CELL COUNT(AUTO) 4.92 MIL/uL (4.50-5.90); RED CELL DISTRIBUTION WIDTH 15.4 % (11.5-14.5); WHITE BLOOD COUNT (AUTO) 8.8 K/uL (4.5-11.0)
[2023-03-18 15:08] LABS: HEMOGLOBIN A1C 5.8 % (3.8-5.6)
[2023-03-18 15:13] LABS: ALANINE AMINOTRANSFERASE 20 U/L (12-78); ALBUMIN 3.4 g/dL (3.4-5.0); ALKALINE PHOSPHATASE 109 U/L (46-116); ANION GAP 7 mmol/L (8-16); ASPARTATE AMINOTRANSFERASE 27 U/L (15-37); BILIRUBIN,TOTAL 0.3 mg/dL (0.1-1.0); CARBON DIOXIDE 29 mmol/L (22-29); CHLORIDE 102 mmol/L (98-107); CHOL/HDL RATIO 3.6 (4.2-7.3); CHOLESTEROL 163 mg/dL (131-200); CREATININE 0.77 mg/dL (0.60-1.30); GLOMERULAR FILTR. RATE CALC > 60 mL/min (>60); GLUCOSE,RANDOM 78 mg/dL (70-110); HDL CHOLESTEROL 45 mg/dL (40-60); LDL CHOL (CALC.) 100 mg/dL (0-130); POTASSIUM 4.4 mmol/L (3.5-5.1); SODIUM SERUM 138 mmol/L (136-145); T4 (THYROXINE) 8.4 mcg/dL (4.7-13.3); TOTAL PROTEIN, SERUM 6.8 g/dL (6.4-8.2); TRIGLYCERIDES 91 mg/dL (15-150); UREA NITROGEN, BLOOD 16 mg/dL (7-18)
[2023-03-18 17:36] LABS: GLUCOMETER DEV NAME(LOC) 3EX.2; GLUCOSE,POINT OF CARE 73 MG/DL (70-110)
[2023-03-18 20:46] LABS: GLUCOMETER DEV NAME(LOC) 3EX.2; GLUCOSE,POINT OF CARE 127 MG/DL (70-110)
[2023-03-18] MEDS: DIVALPROEX SODIUM 500 MG ER TABLET PO SCH (20:59)
[2023-03-18 21:04] VITALS: BP 124/79; PULSE 77; RESP 18; TEMP 97.3
[2023-03-18] MEDS: INSULIN LISPRO 100 UNITS/ML SQ PRN (21:06)
[2023-03-19] MEDS: INSULIN LISPRO 100 UNITS/ML SQ PRN ×3 (06:53→17:30)
[2023-03-19 06:56] LABS: GLUCOMETER DEV NAME(LOC) 3EX.2; GLUCOSE,POINT OF CARE 88 MG/DL (70-110)
[2023-03-19] MEDS: CITALOPRAM HYDROBROMIDE 20 MG TABLET PO SCH (08:14)
[2023-03-19] MEDS: OLANZapine 5 MG TABLET PO SCH ×2 (08:14→16:28)
[2023-03-19] MEDS: NITROFURANTOIN MONOHYD/M-CRYST 100 MG CAPSULE [MACROBID] PO SCH ×2 (08:15→20:32)
[2023-03-19 09:12] VITALS: RESP 17
[2023-03-19 12:01] LABS: GLUCOMETER DEV NAME(LOC) 3EX.2; GLUCOSE,POINT OF CARE 81 MG/DL (70-110)
[2023-03-19 16:32] LABS: GLUCOMETER DEV NAME(LOC) 3EX.2; GLUCOSE,POINT OF CARE 142 MG/DL (70-110)
[2023-03-19 20:27] VITALS: RESP 18
[2023-03-19] MEDS: DIVALPROEX SODIUM 500 MG ER TABLET PO SCH (20:32)
[2023-03-20 06:31] LABS: GLUCOMETER DEV NAME(LOC) 3EX.2; GLUCOSE,POINT OF CARE 92 MG/DL (70-110)
[2023-03-20 08:10] VITALS: BP 111/63; PULSE 62; RESP 17; TEMP 97.2
[2023-03-20] MEDS: NITROFURANTOIN MONOHYD/M-CRYST 100 MG CAPSULE [MACROBID] PO SCH ×2 (08:53→20:55)
[2023-03-20] MEDS: OLANZapine 5 MG TABLET PO SCH ×2 (08:53→20:56)
[2023-03-20] MEDS: CITALOPRAM HYDROBROMIDE 20 MG TABLET PO SCH (08:54)
[2023-03-20 11:46] LABS: GLUCOMETER DEV NAME(LOC) 3EX.2; GLUCOSE,POINT OF CARE 72 MG/DL (70-110)
[2023-03-20] MEDS: PANTOPRAZOLE SODIUM 40 MG DR TABLET PO SCH (11:52)
[2023-03-20] MEDS: OXYBUTYNIN CHLORIDE 5 MG TABLET PO SCH ×2 (11:53→16:27)
[2023-03-20] MEDS: INSULIN LISPRO 100 UNITS/ML SQ PRN ×3 (12:00→21:18)
[2023-03-20] MEDS: LISINOPRIL 5 MG TABLET PO SCH (12:02)
[2023-03-20 16:26] LABS: GLUCOMETER DEV NAME(LOC) 3EX.2; GLUCOSE,POINT OF CARE 112 MG/DL (70-110)
[2023-03-20 20:31] LABS: GLUCOMETER DEV NAME(LOC) 3EX.2; GLUCOSE,POINT OF CARE 150 MG/DL (70-110)
[2023-03-20 20:40] VITALS: BP 121/82; PULSE 66; RESP 18; TEMP 98.1
[2023-03-20] MEDS: SIMVASTATIN 20 MG TABLET PO SCH (20:55)
[2023-03-20] MEDS: DIVALPROEX SODIUM 500 MG ER TABLET PO SCH (20:55)
[2023-03-21 06:46] LABS: GLUCOMETER DEV NAME(LOC) 3EX.2; GLUCOSE,POINT OF CARE 97 MG/DL (70-110)
[2023-03-21] MEDS: LEVOTHYROXINE SODIUM 50 MCG TABLET PO SCH (06:51)
[2023-03-21 08:16] VITALS: BP 112/67; PULSE 69; RESP 18; TEMP 97.7
[2023-03-21] MEDS: NITROFURANTOIN MONOHYD/M-CRYST 100 MG CAPSULE [MACROBID] PO SCH ×2 (08:31→20:48)
[2023-03-21] MEDS: LISINOPRIL 5 MG TABLET PO SCH (08:31)
[2023-03-21] MEDS: PANTOPRAZOLE SODIUM 40 MG DR TABLET PO SCH (08:31)
[2023-03-21] MEDS: OXYBUTYNIN CHLORIDE 5 MG TABLET PO SCH ×2 (08:31→16:35)
[2023-03-21] MEDS: OLANZapine 5 MG TABLET PO SCH ×2 (08:31→20:47)
[2023-03-21] MEDS: CITALOPRAM HYDROBROMIDE 20 MG TABLET PO SCH (08:32)
[2023-03-21 11:27] LABS: GLUCOMETER DEV NAME(LOC) 3EX.2; GLUCOSE,POINT OF CARE 73 MG/DL (70-110)
[2023-03-21] MEDS: INSULIN LISPRO 100 UNITS/ML SQ PRN ×3 (13:12→21:14)
[2023-03-21 16:26] LABS: GLUCOMETER DEV NAME(LOC) 3EX.2; GLUCOSE,POINT OF CARE 98 MG/DL (70-110)
[2023-03-21 20:36] LABS: GLUCOMETER DEV NAME(LOC) 3EX.2; GLUCOSE,POINT OF CARE 139 MG/DL (70-110)
[2023-03-21] MEDS: DIVALPROEX SODIUM 500 MG ER TABLET PO SCH (20:47)
[2023-03-21] MEDS: SIMVASTATIN 20 MG TABLET PO SCH (20:48)
[2023-03-21 21:01] VITALS: BP 118/60; PULSE 72; RESP 19; TEMP 97.5
[2023-03-22] MEDS: LEVOTHYROXINE SODIUM 50 MCG TABLET PO SCH (06:28)
[2023-03-22] MEDS: INSULIN LISPRO 100 UNITS/ML SQ PRN ×2 (06:35→21:32)
[2023-03-22 06:47] LABS: GLUCOMETER DEV NAME(LOC) 3EX.2; GLUCOSE,POINT OF CARE 94 MG/DL (70-110)
[2023-03-22 08:36] VITALS: BP 112/66; PULSE 67; RESP 18; TEMP 97.7
[2023-03-22] MEDS: OLANZapine 5 MG TABLET PO SCH ×2 (08:40→20:41)
[2023-03-22] MEDS: CITALOPRAM HYDROBROMIDE 20 MG TABLET PO SCH (08:40)
[2023-03-22] MEDS: OXYBUTYNIN CHLORIDE 5 MG TABLET PO SCH ×2 (08:40→16:14)
[2023-03-22] MEDS: LISINOPRIL 5 MG TABLET PO SCH (08:40)
[2023-03-22] MEDS: PANTOPRAZOLE SODIUM 40 MG DR TABLET PO SCH (08:40)
[2023-03-22] MEDS: NITROFURANTOIN MONOHYD/M-CRYST 100 MG CAPSULE [MACROBID] PO SCH ×2 (10:09→20:41)
[2023-03-22 11:31] LABS: GLUCOMETER DEV NAME(LOC) 3EX.2; GLUCOSE,POINT OF CARE 91 MG/DL (70-110)
[2023-03-22 17:36] LABS: GLUCOMETER DEV NAME(LOC) 3EX.2; GLUCOSE,POINT OF CARE 98 MG/DL (70-110)
[2023-03-22 20:29] VITALS: BP 117/68; PULSE 86; RESP 18; TEMP 98.2
[2023-03-22] MEDS: SIMVASTATIN 20 MG TABLET PO SCH (20:41)
[2023-03-22] MEDS: DIVALPROEX SODIUM 500 MG ER TABLET PO SCH (20:41)
[2023-03-22 20:51] LABS: GLUCOMETER DEV NAME(LOC) 3EX.2; GLUCOSE,POINT OF CARE 100 MG/DL (70-110)
[2023-03-23] MEDS: LEVOTHYROXINE SODIUM 50 MCG TABLET PO SCH (06:31)
[2023-03-23] MEDS: INSULIN LISPRO 100 UNITS/ML SQ PRN ×2 (06:34→22:15)
[2023-03-23 06:36] LABS: GLUCOMETER DEV NAME(LOC) 3EX.2; GLUCOSE,POINT OF CARE 89 MG/DL (70-110)
[2023-03-23] MEDS: OXYBUTYNIN CHLORIDE 5 MG TABLET PO SCH ×2 (08:29→16:22)
[2023-03-23] MEDS: NITROFURANTOIN MONOHYD/M-CRYST 100 MG CAPSULE [MACROBID] PO SCH ×2 (08:29→20:47)
[2023-03-23] MEDS: OLANZapine 5 MG TABLET PO SCH ×2 (08:31→20:47)
[2023-03-23] MEDS: CITALOPRAM HYDROBROMIDE 20 MG TABLET PO SCH (08:31)
[2023-03-23] MEDS: LISINOPRIL 5 MG TABLET PO SCH (08:31)
[2023-03-23] MEDS: PANTOPRAZOLE SODIUM 40 MG DR TABLET PO SCH (08:31)
[2023-03-23 08:48] VITALS: BP 136/65; PULSE 67; RESP 18; TEMP 97.7
[2023-03-23 11:36] LABS: GLUCOMETER DEV NAME(LOC) 3EX.2; GLUCOSE,POINT OF CARE 102 MG/DL (70-110)
[2023-03-23 16:46] LABS: GLUCOMETER DEV NAME(LOC) 3EX.2; GLUCOSE,POINT OF CARE 106 MG/DL (70-110)
[2023-03-23 20:41] LABS: GLUCOMETER DEV NAME(LOC) 3EX.2; GLUCOSE,POINT OF CARE 108 MG/DL (70-110)
[2023-03-23] MEDS: SIMVASTATIN 20 MG TABLET PO SCH (20:47)
[2023-03-23] MEDS: DIVALPROEX SODIUM 500 MG ER TABLET PO SCH (20:48)
[2023-03-23 21:52] VITALS: BP 121/77; PULSE 74; RESP 18; TEMP 97.4
[2023-03-24 06:21] LABS: GLUCOMETER DEV NAME(LOC) 3EX.2; GLUCOSE,POINT OF CARE 111 MG/DL (70-110)
[2023-03-24] MEDS: LEVOTHYROXINE SODIUM 50 MCG TABLET PO SCH (06:53)
[2023-03-24] MEDS: INSULIN LISPRO 100 UNITS/ML SQ PRN ×4 (06:53→20:53)
[2023-03-24] MEDS: LISINOPRIL 5 MG TABLET PO SCH (09:02)
[2023-03-24] MEDS: OLANZapine 5 MG TABLET PO SCH ×2 (09:02→20:52)
[2023-03-24] MEDS: CITALOPRAM HYDROBROMIDE 20 MG TABLET PO SCH (09:02)
[2023-03-24] MEDS: PANTOPRAZOLE SODIUM 40 MG DR TABLET PO SCH (09:02)
[2023-03-24 09:03] VITALS: BP 113/61; PULSE 69; RESP 17; TEMP 97.7
[2023-03-24] MEDS: OXYBUTYNIN CHLORIDE 5 MG TABLET PO SCH ×2 (09:09→16:18)
[2023-03-24 12:02] LABS: GLUCOMETER DEV NAME(LOC) 3EX.2; GLUCOSE,POINT OF CARE 82 MG/DL (70-110)
[2023-03-24 17:37] LABS: GLUCOMETER DEV NAME(LOC) 3EX.2; GLUCOSE,POINT OF CARE 84 MG/DL (70-110)
[2023-03-24 20:26] LABS: GLUCOMETER DEV NAME(LOC) 3EX.2; GLUCOSE,POINT OF CARE 110 MG/DL (70-110)
[2023-03-24 20:30] VITALS: BP 116/59; PULSE 56; RESP 18; TEMP 97.4
[2023-03-24] MEDS: DIVALPROEX SODIUM 500 MG ER TABLET PO SCH (20:51)
[2023-03-24] MEDS: SIMVASTATIN 20 MG TABLET PO SCH (20:52)
[2023-03-25 06:31] LABS: GLUCOMETER DEV NAME(LOC) 3EX.2; GLUCOSE,POINT OF CARE 84 MG/DL (70-110)
[2023-03-25] MEDS: INSULIN LISPRO 100 UNITS/ML SQ PRN ×3 (06:38→21:12)
[2023-03-25] MEDS: LEVOTHYROXINE SODIUM 50 MCG TABLET PO SCH (06:38)
[2023-03-25 08:23] VITALS: BP 146/88; PULSE 75; RESP 18; TEMP 97.3
[2023-03-25] MEDS: CITALOPRAM HYDROBROMIDE 20 MG TABLET PO SCH (08:37)
[2023-03-25] MEDS: OLANZapine 5 MG TABLET PO SCH ×2 (08:37→20:52)
[2023-03-25] MEDS: PANTOPRAZOLE SODIUM 40 MG DR TABLET PO SCH (08:37)
[2023-03-25] MEDS: LISINOPRIL 5 MG TABLET PO SCH (08:37)
[2023-03-25] MEDS: OXYBUTYNIN CHLORIDE 5 MG TABLET PO SCH ×2 (08:38→16:40)
[2023-03-25 11:30] LABS: GLUCOMETER DEV NAME(LOC) 3EX.2; GLUCOSE,POINT OF CARE 96 MG/DL (70-110)
[2023-03-25 16:27] LABS: GLUCOMETER DEV NAME(LOC) 3EX.2; GLUCOSE,POINT OF CARE 100 MG/DL (70-110)
[2023-03-25 20:12] VITALS: BP 106/58; PULSE 66; RESP 18; TEMP 97.9
[2023-03-25 20:16] LABS: GLUCOMETER DEV NAME(LOC) 3EX.2; GLUCOSE,POINT OF CARE 119 MG/DL (70-110)
[2023-03-25] MEDS: DIVALPROEX SODIUM 500 MG ER TABLET PO SCH (20:52)
[2023-03-25] MEDS: SIMVASTATIN 20 MG TABLET PO SCH (20:54)
[2023-03-26] MEDS: ZOLPIDEM TARTRATE 10 MG TABLET PO PRN (01:51)
[2023-03-26] MEDS: LEVOTHYROXINE SODIUM 50 MCG TABLET PO SCH (06:37)
[2023-03-26] MEDS: INSULIN LISPRO 100 UNITS/ML SQ PRN ×3 (06:39→17:22)
[2023-03-26 06:46] LABS: GLUCOMETER DEV NAME(LOC) 3EX.2; GLUCOSE,POINT OF CARE 82 MG/DL (70-110)
[2023-03-26] MEDS: PANTOPRAZOLE SODIUM 40 MG DR TABLET PO SCH (08:13)
[2023-03-26] MEDS: OLANZapine 5 MG TABLET PO SCH ×2 (08:14→20:33)
[2023-03-26] MEDS: LISINOPRIL 5 MG TABLET PO SCH (08:14)
[2023-03-26] MEDS: CITALOPRAM HYDROBROMIDE 20 MG TABLET PO SCH (08:14)
[2023-03-26] MEDS: OXYBUTYNIN CHLORIDE 5 MG TABLET PO SCH ×2 (08:15→17:14)
[2023-03-26 11:46] LABS: GLUCOMETER DEV NAME(LOC) 3EX.2; GLUCOSE,POINT OF CARE 117 MG/DL (70-110)
[2023-03-26 14:26] VITALS: RESP 18
[2023-03-26 16:21] LABS: GLUCOMETER DEV NAME(LOC) 3EX.2; GLUCOSE,POINT OF CARE 89 MG/DL (70-110)
[2023-03-26] MEDS: SIMVASTATIN 20 MG TABLET PO SCH (20:33)
[2023-03-26] MEDS: DIVALPROEX SODIUM 500 MG ER TABLET PO SCH (20:33)
[2023-03-26 21:51] VITALS: RESP 17
[2023-03-27 06:11] LABS: GLUCOMETER DEV NAME(LOC) 3EX.2; GLUCOSE,POINT OF CARE 86 MG/DL (70-110)
[2023-03-27 06:11] LABS: GLUCOMETER DEV NAME(LOC) 3EX.2; GLUCOSE,POINT OF CARE 95 MG/DL (70-110)
[2023-03-27] MEDS: LEVOTHYROXINE SODIUM 50 MCG TABLET PO SCH (06:41)
[2023-03-27] MEDS: LISINOPRIL 5 MG TABLET PO SCH (08:09)
[2023-03-27] MEDS: CITALOPRAM HYDROBROMIDE 20 MG TABLET PO SCH (08:09)
[2023-03-27] MEDS: PANTOPRAZOLE SODIUM 40 MG DR TABLET PO SCH (08:09)
[2023-03-27] MEDS: OLANZapine 5 MG TABLET PO SCH ×2 (08:09→20:21)
[2023-03-27] MEDS: OXYBUTYNIN CHLORIDE 5 MG TABLET PO SCH ×2 (08:10→16:49)
[2023-03-27 08:18] VITALS: BP 115/57; PULSE 72; RESP 18; TEMP 98.2
[2023-03-27] MEDS: INSULIN LISPRO 100 UNITS/ML SQ PRN ×2 (13:01→18:32)
[2023-03-27 17:37] LABS: GLUCOMETER DEV NAME(LOC) 3E.C; GLUCOSE,POINT OF CARE 100 MG/DL (70-110)
[2023-03-27 20:21] LABS: GLUCOMETER DEV NAME(LOC) 3EX.2; GLUCOSE,POINT OF CARE 129 MG/DL (70-110)
[2023-03-27] MEDS: SIMVASTATIN 20 MG TABLET PO SCH (20:21)
[2023-03-27] MEDS: DIVALPROEX SODIUM 500 MG ER TABLET PO SCH (20:21)
[2023-03-27 20:57] VITALS: BP 104/51; PULSE 61; RESP 18; TEMP 97.7
[2023-03-28 05:55] LABS: GLUCOMETER DEV NAME(LOC) 3EX.2; GLUCOSE,POINT OF CARE 77 MG/DL (70-110)
[2023-03-28] MEDS: LEVOTHYROXINE SODIUM 50 MCG TABLET PO SCH (06:44)
[2023-03-28 08:48] VITALS: BP 122/65; PULSE 67; RESP 18; TEMP 97.7
[2023-03-28] MEDS: OLANZapine 5 MG TABLET PO SCH ×2 (09:32→21:05)
[2023-03-28] MEDS: LISINOPRIL 5 MG TABLET PO SCH (09:32)
[2023-03-28] MEDS: CITALOPRAM HYDROBROMIDE 20 MG TABLET PO SCH (09:32)
[2023-03-28] MEDS: PANTOPRAZOLE SODIUM 40 MG DR TABLET PO SCH (09:34)
[2023-03-28] MEDS: OXYBUTYNIN CHLORIDE 5 MG TABLET PO SCH ×2 (09:35→16:55)
[2023-03-28 11:31] LABS: GLUCOMETER DEV NAME(LOC) 3EX.2; GLUCOSE,POINT OF CARE 66 MG/DL (70-110)
[2023-03-28] MEDS: INSULIN LISPRO 100 UNITS/ML SQ PRN ×3 (11:58→21:14)
[2023-03-28 16:41] LABS: GLUCOMETER DEV NAME(LOC) 3EX.2; GLUCOSE,POINT OF CARE 115 MG/DL (70-110)
[2023-03-28 20:31] LABS: GLUCOMETER DEV NAME(LOC) 3EX.2; GLUCOSE,POINT OF CARE 159 MG/DL (70-110)
[2023-03-28] MEDS: SIMVASTATIN 20 MG TABLET PO SCH (21:04)
[2023-03-28] MEDS: DIVALPROEX SODIUM 500 MG ER TABLET PO SCH (21:04)
[2023-03-28 21:09] VITALS: RESP 18
[2023-03-29 06:31] LABS: GLUCOMETER DEV NAME(LOC) 3EX.2; GLUCOSE,POINT OF CARE 98 MG/DL (70-110)
[2023-03-29] MEDS: LEVOTHYROXINE SODIUM 50 MCG TABLET PO SCH (06:52)
[2023-03-29] MEDS: OLANZapine 5 MG TABLET PO SCH ×2 (08:29→21:27)
[2023-03-29] MEDS: PANTOPRAZOLE SODIUM 40 MG DR TABLET PO SCH (08:29)
[2023-03-29] MEDS: CITALOPRAM HYDROBROMIDE 20 MG TABLET PO SCH (08:29)
[2023-03-29] MEDS: LISINOPRIL 5 MG TABLET PO SCH (08:30)
[2023-03-29] MEDS: OXYBUTYNIN CHLORIDE 5 MG TABLET PO SCH ×2 (08:30→16:25)
[2023-03-29 09:10] VITALS: BP 103/58; PULSE 103; RESP 18; TEMP 98
[2023-03-29 11:50] LABS: GLUCOMETER DEV NAME(LOC) 3EX.2; GLUCOSE,POINT OF CARE 97 MG/DL (70-110)
[2023-03-29 17:31] LABS: GLUCOMETER DEV NAME(LOC) 3EX.2; GLUCOSE,POINT OF CARE 125 MG/DL (70-110)
[2023-03-29 20:32] VITALS: BP 105/62; PULSE 74; RESP 18; TEMP 98.2
[2023-03-29 20:51] LABS: GLUCOMETER DEV NAME(LOC) 3EX.2; GLUCOSE,POINT OF CARE 94 MG/DL (70-110)
[2023-03-29] MEDS: ZOLPIDEM TARTRATE 10 MG TABLET PO PRN (21:28)
[2023-03-29] MEDS: SIMVASTATIN 20 MG TABLET PO SCH (21:28)
[2023-03-29] MEDS: DIVALPROEX SODIUM 500 MG ER TABLET PO SCH (21:28)
[2023-03-30 06:31] LABS: GLUCOMETER DEV NAME(LOC) 3EX.2; GLUCOSE,POINT OF CARE 105 MG/DL (70-110)
[2023-03-30] MEDS: LEVOTHYROXINE SODIUM 50 MCG TABLET PO SCH (06:36)
[2023-03-30 08:06] VITALS: BP 111/70; PULSE 89; RESP 17; TEMP 98.3
[2023-03-30] MEDS: OXYBUTYNIN CHLORIDE 5 MG TABLET PO SCH ×2 (09:28→16:25)
[2023-03-30] MEDS: LISINOPRIL 5 MG TABLET PO SCH (09:28)
[2023-03-30] MEDS: PANTOPRAZOLE SODIUM 40 MG DR TABLET PO SCH (09:28)
[2023-03-30] MEDS: OLANZapine 5 MG TABLET PO SCH ×2 (09:28→21:32)
[2023-03-30] MEDS: CITALOPRAM HYDROBROMIDE 20 MG TABLET PO SCH (09:29)
[2023-03-30 11:31] LABS: GLUCOMETER DEV NAME(LOC) 3EX.2; GLUCOSE,POINT OF CARE 108 MG/DL (70-110)
[2023-03-30 17:31] LABS: GLUCOMETER DEV NAME(LOC) 3EX.2; GLUCOSE,POINT OF CARE 117 MG/DL (70-110)
[2023-03-30 20:17] VITALS: BP 80/60; PULSE 71; RESP 17; TEMP 97.8
[2023-03-30 21:06] LABS: GLUCOMETER DEV NAME(LOC) 3EX.2; GLUCOSE,POINT OF CARE 133 MG/DL (70-110)
[2023-03-30] MEDS: SIMVASTATIN 20 MG TABLET PO SCH (21:32)
[2023-03-30] MEDS: DIVALPROEX SODIUM 500 MG ER TABLET PO SCH (21:32)
[2023-03-31 06:26] LABS: GLUCOMETER DEV NAME(LOC) 3EX.2; GLUCOSE,POINT OF CARE 96 MG/DL (70-110)
[2023-03-31] MEDS: LEVOTHYROXINE SODIUM 50 MCG TABLET PO SCH (06:45)
[2023-03-31] MEDS: OXYBUTYNIN CHLORIDE 5 MG TABLET PO SCH ×2 (08:38→15:58)
[2023-03-31] MEDS: CITALOPRAM HYDROBROMIDE 20 MG TABLET PO SCH (08:42)
[2023-03-31] MEDS: OLANZapine 5 MG TABLET PO SCH ×2 (08:42→20:39)
[2023-03-31] MEDS: LISINOPRIL 5 MG TABLET PO SCH (08:42)
[2023-03-31] MEDS: PANTOPRAZOLE SODIUM 40 MG DR TABLET PO SCH (08:42)
[2023-03-31 09:54] VITALS: BP 100/59; PULSE 67; RESP 18; TEMP 97.5
[2023-03-31 11:30] LABS: GLUCOMETER DEV NAME(LOC) 3EX.2; GLUCOSE,POINT OF CARE 107 MG/DL (70-110)
[2023-03-31 16:36] LABS: GLUCOMETER DEV NAME(LOC) 3EX.2; GLUCOSE,POINT OF CARE 132 MG/DL (70-110)
[2023-03-31 20:26] VITALS: RESP 18
[2023-03-31 20:26] LABS: GLUCOMETER DEV NAME(LOC) 3EX.2; GLUCOSE,POINT OF CARE 155 MG/DL (70-110)
[2023-03-31] MEDS: DIVALPROEX SODIUM 500 MG ER TABLET PO SCH (20:39)
[2023-03-31] MEDS: SIMVASTATIN 20 MG TABLET PO SCH (20:39)
[2023-03-31] MEDS: INSULIN LISPRO 100 UNITS/ML SQ PRN (21:15)
[2023-04-01 06:17] LABS: GLUCOMETER DEV NAME(LOC) 3EX.2; GLUCOSE,POINT OF CARE 80 MG/DL (70-110)
[2023-04-01] MEDS: LEVOTHYROXINE SODIUM 50 MCG TABLET PO SCH (06:37)
[2023-04-01] MEDS: CITALOPRAM HYDROBROMIDE 20 MG TABLET PO SCH (08:04)
[2023-04-01] MEDS: OXYBUTYNIN CHLORIDE 5 MG TABLET PO SCH ×2 (08:04→16:04)
[2023-04-01] MEDS: LISINOPRIL 5 MG TABLET PO SCH (08:04)
[2023-04-01] MEDS: OLANZapine 5 MG TABLET PO SCH ×2 (08:04→20:22)
[2023-04-01] MEDS: PANTOPRAZOLE SODIUM 40 MG DR TABLET PO SCH (08:04)
[2023-04-01 08:39] VITALS: BP 148/92; PULSE 75; RESP 18; TEMP 97.6
[2023-04-01 11:16] LABS: GLUCOMETER DEV NAME(LOC) 3EX.2; GLUCOSE,POINT OF CARE 79 MG/DL (70-110)
[2023-04-01 17:01] LABS: GLUCOMETER DEV NAME(LOC) 3EX.2; GLUCOSE,POINT OF CARE 100 MG/DL (70-110)
[2023-04-01 20:15] LABS: GLUCOMETER DEV NAME(LOC) 3EX.2; GLUCOSE,POINT OF CARE 106 MG/DL (70-110)
[2023-04-01] MEDS: DIVALPROEX SODIUM 500 MG ER TABLET PO SCH (20:22)
[2023-04-01] MEDS: SIMVASTATIN 20 MG TABLET PO SCH (20:22)
[2023-04-01 20:55] VITALS: RESP 18
[2023-04-02 05:56] LABS: GLUCOMETER DEV NAME(LOC) 3EX.2; GLUCOSE,POINT OF CARE 101 MG/DL (70-110)
[2023-04-02] MEDS: LEVOTHYROXINE SODIUM 50 MCG TABLET PO SCH (06:38)
[2023-04-02] MEDS: LISINOPRIL 5 MG TABLET PO SCH (08:18)
[2023-04-02] MEDS: PANTOPRAZOLE SODIUM 40 MG DR TABLET PO SCH (08:18)
[2023-04-02] MEDS: OXYBUTYNIN CHLORIDE 5 MG TABLET PO SCH ×2 (08:18→16:35)
[2023-04-02] MEDS: CITALOPRAM HYDROBROMIDE 20 MG TABLET PO SCH (08:19)
[2023-04-02] MEDS: OLANZapine 5 MG TABLET PO SCH ×2 (08:19→21:06)
[2023-04-02 08:33] VITALS: BP 102/52; PULSE 62; RESP 17; TEMP 98
[2023-04-02 11:46] LABS: GLUCOMETER DEV NAME(LOC) 3EX.2; GLUCOSE,POINT OF CARE 105 MG/DL (70-110)
[2023-04-02 17:16] LABS: GLUCOMETER DEV NAME(LOC) 3EX.2; GLUCOSE,POINT OF CARE 123 MG/DL (70-110)
[2023-04-02] MEDS: DIVALPROEX SODIUM 500 MG ER TABLET PO SCH (21:05)
[2023-04-02] MEDS: SIMVASTATIN 20 MG TABLET PO SCH (21:06)
[2023-04-02] MEDS: INSULIN LISPRO 100 UNITS/ML SQ PRN (21:07)
[2023-04-02 21:38] VITALS: BP 108/64; PULSE 79; RESP 18; TEMP 97.9
[2023-04-02 21:52] LABS: GLUCOMETER DEV NAME(LOC) 3EX.2; GLUCOSE,POINT OF CARE 98 MG/DL (70-110)
[2023-04-03] MEDS: LEVOTHYROXINE SODIUM 50 MCG TABLET PO SCH (06:40)
[2023-04-03] MEDS: INSULIN LISPRO 100 UNITS/ML SQ PRN (06:41)
[2023-04-03 07:01] LABS: GLUCOMETER DEV NAME(LOC) 3EX.2; GLUCOSE,POINT OF CARE 94 MG/DL (70-110)
[2023-04-03] MEDS: OLANZapine 5 MG TABLET PO SCH ×2 (08:30→20:53)
[2023-04-03] MEDS: OXYBUTYNIN CHLORIDE 5 MG TABLET PO SCH ×2 (08:30→17:01)
[2023-04-03] MEDS: PANTOPRAZOLE SODIUM 40 MG DR TABLET PO SCH (08:30)
[2023-04-03] MEDS: CITALOPRAM HYDROBROMIDE 20 MG TABLET PO SCH (08:30)
[2023-04-03] MEDS: LISINOPRIL 5 MG TABLET PO SCH (08:30)
[2023-04-03 08:47] VITALS: BP 106/56; PULSE 69; RESP 18; TEMP 97.8
[2023-04-03 11:41] LABS: GLUCOMETER DEV NAME(LOC) 3EX.2; GLUCOSE,POINT OF CARE 81 MG/DL (70-110)
[2023-04-03 20:10] VITALS: RESP 18
[2023-04-03] MEDS: DIVALPROEX SODIUM 500 MG ER TABLET PO SCH (20:53)
[2023-04-03] MEDS: SIMVASTATIN 20 MG TABLET PO SCH (20:54)
[2023-04-04] MEDS: LEVOTHYROXINE SODIUM 50 MCG TABLET PO SCH (06:40)
[2023-04-04 08:54] VITALS: BP 98/57; PULSE 64; RESP 17; TEMP 98.1
[2023-04-04] MEDS: OXYBUTYNIN CHLORIDE 5 MG TABLET PO SCH ×2 (09:52→16:29)
[2023-04-04] MEDS: OLANZapine 5 MG TABLET PO SCH (09:54)
[2023-04-04] MEDS: PANTOPRAZOLE SODIUM 40 MG DR TABLET PO SCH (09:54)
[2023-04-04] MEDS: LISINOPRIL 5 MG TABLET PO SCH (09:55)
[2023-04-04] MEDS: CITALOPRAM HYDROBROMIDE 20 MG TABLET PO SCH (09:56)
[2023-04-04] MEDS ORDERED: LISI-660 PO (14:52)
[2023-04-04] MEDS ORDERED: OXYB5TAB20 PO (14:54)
== END 2023-04-04 20:00 | DRG 885 ==
LOC: 3EC 03-17 00:30
PROVIDERS: ADMIT Psychiatry & Neurology Psychiatry; ATTEND Psychiatry & Neurology Psychiatry
PROC: GZHZZZZ Group Psychotherapy (ICD-10-PCS; principal; 2023-03-20)
DX: F25.0 Schizoaffective disorder, bipolar type (principal); Z59.00 Homelessness unspecified; E03.9 Hypothyroidism, unspecified; E78.5 Hyperlipidemia, unspecified; I10 Essential (primary) hypertension; J44.9 Chronic obstructive pulmonary disease, unspecified; K21.9 Gastro-esophageal reflux disease without esophagitis; R32 Unspecified urinary incontinence; E11.9 Type 2 diabetes mellitus without complications; G47.00 Insomnia, unspecified; Z88.8 Allergy status to other drugs, medicaments and biological substances
CPT/HCPCS: 80053; 80061; 80164; 82962; 83036; 84436; 84443; 85025; 87081; 87481

== ENCOUNTER 2024-02-20 13:58 | Inpatient (IN) | payer MEDICARE, OTHER ==
[~2024-02-20] VITALS: Ht 165.1 cm; Wt 68.2 kg
[~2024-02-20 13:58] MED LIST changes: +ACET-2247 PO; +CIPR250T6 PO; +DIVA-153 PO; -DIVA500T53 PO; -DOCU100C33 PO; +HEPA500018 SQ; +LISI-660 PO; -OLAN15TA2 PO; +OLAN5TAB52 PO; -OXYB5TAB20 PO; -QUET200T PO
[2024-02-20 15:23] LABS: APPEARANCE,URINE HAZY (CLEAR); BILIRUBIN,URINE NEGATIVE (NEGATIVE); COLOR,URINE YELLOW (YELLOW); GLUCOSE, URINE (UA) NEGATIVE (NEGATIVE); KETONES,URINE NEGATIVE (NEGATIVE); LEUKOCYTE ESTERASE ,URINE LARGE (NEGATIVE); NITRATE,URINE POSITIVE (NEGATIVE); OCCULT BLOOD,URINE NEGATIVE (NEGATIVE); PROTEIN,URINE 30-70 mg/dL (NEGATIVE); SPECIFIC GRAVITIY, URINE 1.019 (1.003-1.030); UROBILINOGEN,URINE <=1.0 mg/dL (<=1.0)
[2024-02-20 15:42] LABS: ALCOHOL, URINE DRUG SCREEN NEGATIVE (NEGATIVE); AMPHET/METH SCREEN,URINE NEGATIVE (NEGATIVE); BACTERIA,URINE Moderate /HPF (None Seen); BARBITURATE SCREEN, URINE NEGATIVE (NEGATIVE); BENZODIAZEPINES SCREEN,URINE NEGATIVE (NEGATIVE); CANNABINOID SCREEN,URINE NEGATIVE (NEGATIVE); COCAINE SCREEN,URINE NEGATIVE (NEGATIVE); METHADONE SCREEN, URINE NEGATIVE (NEGATIVE); OPIATE SCREEN,URINE NEGATIVE (NEGATIVE); PHENCYCLIDINE SCREEN,URINE NEGATIVE (NEGATIVE); RBC,URINE None Seen /HPF (0-2); SQUAMOUS EPITHELIAL CELL,UR Rare /LPF (None Seen); WBC,URINE 51-100 /HPF (0-5)
[2024-02-20] MEDS ORDERED: DEXTROSE 50%-WATER 25 GM/50 ML SYRINGE IVP PRN (16:15)
[2024-02-20] MEDS ORDERED: ACETAMINOPHEN 325 MG TABLET PO PRN (16:15)
[2024-02-20 16:18] LABS: BASOPHILS % (AUTO) 0.2 % (0.0-2.0); EOSINOPHILS % (AUTO) 1.5 % (1.0-6.0); HEMATOCRIT 39.1 % (41-53); HEMOGLOBIN 12.9 g/dL (13.5-17.5); LYMPHOCYTES % (AUTO) 22.8 % (22.0-44.0); MEAN CORPUSCULAR HEMOGLOBIN 30.8 pg (26.0-34.0); MEAN CORPUSCULAR HGB CONC 32.9 G/dL (31.0-37.0); MEAN CORPUSCULAR VOLUME 94 fL (80-100); MONOCYTES # (AUTO) 1.7 K/uL (0.1-1.0); NEUTROPHILS # (AUTO) 4.9 K/uL (1.8-7.7); NEUTROPHILS % (AUTO) 56.5 % (40.0-70.0); PLATELET COUNT (AUTO) 174 K/uL (150-450); RED BLOOD CELL COUNT(AUTO) 4.18 MIL/uL (4.50-5.90); RED CELL DISTRIBUTION WIDTH 15.5 % (11.5-14.5); WHITE BLOOD COUNT (AUTO) 8.8 K/uL (4.5-11.0)
[2024-02-20] MEDS: *CLINICAL-LEVOFLOXACIN ORAL DOSING CLINICAL ONE (16:18)
[2024-02-20] MEDS: LEVOFLOXACIN 500 MG TABLET PO SCH (16:19)
[2024-02-20 16:38] LABS: LACTIC ACID 1.2 mmol/L (0.4-2.0); TROPONIN I-HIGH SENSITIVITY 23 ng/L (<76)
[2024-02-20 16:41] LABS: B-TYPE NATRIURETIC PEPTIDE 240 pg/mL (0-100)
[2024-02-20 16:42] LABS: ANION GAP 4 mmol/L (8-16); CALCIUM, TOTAL 8.8 mg/dL (8.8-10.5); CARBON DIOXIDE 32 mmol/L (22-29); CHLORIDE 99 mmol/L (98-107); CREATININE 1.35 mg/dL (0.60-1.30); GLOMERULAR FILTR. RATE CALC 54 mL/min (>60); GLUCOSE,RANDOM 74 mg/dL (70-110); LIPASE 26 U/L (16-77); POTASSIUM 4.1 mmol/L (3.5-5.1); SODIUM SERUM 135 mmol/L (136-145); UREA NITROGEN, BLOOD 29 mg/dL (7-18)
[2024-02-20 16:49] LABS: ALCOHOL, BLOOD (SERUM) < 3 mg/dL (0-10)
[2024-02-20 17:59] LABS: THYROID STIMULATING HORMONE 1.88 uIU/mL (0.36-3.74)
[2024-02-20] MEDS: LORazepam 2 MG/ML VIAL IVP ONE (19:46)
[2024-02-20 19:50] VITALS: BP 138/86; PULSE 61; RESP 18; TEMP 98.4; O2SAT 97
[2024-02-20 21:11] LABS: GLUCOMETER DEV NAME(LOC) 6N.1B; GLUCOSE,POINT OF CARE 121 MG/DL (70-110)
[2024-02-20] MEDS ORDERED: INFLUENZA VIRUS VACCINE TVS (6MO+) 2024-25/PF 45 MCG/0.5 ML SYRINGE IM. ONE (23:45)
[2024-02-21 05:10] VITALS: BP 120/68; PULSE 69; RESP 18; TEMP 98.6; O2SAT 94
[2024-02-21] MEDS: LORazepam 2 MG/ML VIAL IVP ONE ×2 (05:28→07:07)
[2024-02-21 08:31] VITALS: BP 128/66; PULSE 66; RESP 19; TEMP 98.4; O2SAT 97
[2024-02-21] MEDS: FAMOTIDINE 20 MG TABLET PO SCH (08:51)
[2024-02-21] MEDS: CITALOPRAM HYDROBROMIDE 20 MG TABLET PO SCH (10:45)
[2024-02-21 15:17] VITALS: BP 132/70; PULSE 72; RESP 18; TEMP 98.2; O2SAT 99
[2024-02-21] MEDS: QUEtiapine FUMARATE 200 MG TABLET PO SCH (18:23)
[2024-02-21] MEDS: MELATONIN 3 MG TABLET PO SCH (21:00)
[2024-02-21] MEDS: DIVALPROEX SODIUM 500 MG ER TABLET PO SCH (21:00)
[2024-02-22 02:03] VITALS: BP 114/69; PULSE 55; RESP 20; TEMP 97.9; O2SAT 95
[2024-02-22 07:53] VITALS: BP 122/64; PULSE 64; RESP 19; TEMP 98.1; O2SAT 96
[2024-02-22] MEDS: *CLINICAL-MEROPENEM DOSING CLINICAL ONE (11:04)
[2024-02-22] MEDS ORDERED: SODIUM CHLORIDE 0.9% 500 ML IV ONE (11:40)
[2024-02-22] MEDS: MEROPENEM 1 GM in SODIUM CHLORIDE 0.9% 100 ML IV SCH (12:19)
[2024-02-22 16:29] VITALS: BP 120/62; PULSE 62; RESP 18; TEMP 98; O2SAT 97
[2024-02-22 17:06] LABS: GLUCOMETER DEV NAME(LOC) 6N.2B; GLUCOSE,POINT OF CARE 94 MG/DL (70-110)
[2024-02-22 17:40] LABS: GLUCOMETER DEV NAME(LOC) 6N.1B; GLUCOSE,POINT OF CARE 119 MG/DL (70-110)
[2024-02-22 19:30] VITALS: BP 129/63; PULSE 54; RESP 20; TEMP 98.3; O2SAT 93
[2024-02-22] MEDS: ZOLPIDEM TARTRATE 5 MG TABLET PO PRN (21:33)
[2024-02-22 23:20] LABS: GLUCOMETER DEV NAME(LOC) 6N.1B; GLUCOSE,POINT OF CARE 115 MG/DL (70-110)
[2024-02-23 05:10] VITALS: BP 130/61; PULSE 66; RESP 18; TEMP 98.5; O2SAT 94
[2024-02-23 07:15] LABS: GLUCOMETER DEV NAME(LOC) 6N.1B; GLUCOSE,POINT OF CARE 100 MG/DL (70-110)
[2024-02-23 07:51] VITALS: BP 159/69; PULSE 80; RESP 20; TEMP 98; O2SAT 95
[2024-02-23] MEDS: ChlorproMAZINE HCL 50 MG/2 ML AMP IM ONE (08:50)
[2024-02-23] MEDS: DiphenhydrAMINE HCL 50 MG/ML VIAL IM ONE (08:50)
[2024-02-23] MEDS: LORazepam 2 MG/ML VIAL IM ONE (08:50)
[2024-02-23 14:21] LABS: GLUCOMETER DEV NAME(LOC) 6N.1B; GLUCOSE,POINT OF CARE 78 MG/DL (70-110)
[2024-02-23] MEDS: INSULIN LISPRO 100 UNITS/ML SQ PRN (17:54)
[2024-02-23 20:00] VITALS: BP 117/71; PULSE 67; RESP 20; TEMP 97.7; O2SAT 95
[2024-02-23 21:01] LABS: GLUCOMETER DEV NAME(LOC) 6N.1B; GLUCOSE,POINT OF CARE 143 MG/DL (70-110)
[2024-02-23 23:01] LABS: GLUCOMETER DEV NAME(LOC) 6S.2; GLUCOSE,POINT OF CARE 134 MG/DL (70-110)
[2024-02-24 05:28] VITALS: BP 147/69; PULSE 54; RESP 18; TEMP 98.4; O2SAT 95
[2024-02-24 07:55] VITALS: BP 132/60; PULSE 58; RESP 18; TEMP 98.1; O2SAT 98
[2024-02-24] MEDS: ChlorproMAZINE HCL 50 MG/2 ML AMP IM ONE (12:35)
[2024-02-24] MEDS: LORazepam 2 MG/ML VIAL IM ONE (12:35)
[2024-02-24] MEDS: DiphenhydrAMINE HCL 50 MG/ML VIAL IM ONE (12:35)
[2024-02-24 16:54] VITALS: BP 133/75; PULSE 61; RESP 19; TEMP 98.1; O2SAT 93
[2024-02-24 18:51] LABS: GLUCOMETER DEV NAME(LOC) 6S.1D; GLUCOSE,POINT OF CARE 107 MG/DL (70-110)
[2024-02-24 19:49] VITALS: BP 115/66; PULSE 80; RESP 17; TEMP 98; O2SAT 96
[2024-02-25 01:36] LABS: GLUCOMETER DEV NAME(LOC) 6S.2; GLUCOSE,POINT OF CARE 122 MG/DL (70-110)
[2024-02-25 04:45] VITALS: BP 131/64; PULSE 66; RESP 20; TEMP 99.3; O2SAT 94
[2024-02-25 07:31] VITALS: BP 147/82; PULSE 71; RESP 18; TEMP 98.9; O2SAT 95
[2024-02-25 09:05] LABS: GLUCOMETER DEV NAME(LOC) 6N.2B; GLUCOSE,POINT OF CARE 104 MG/DL (70-110)
[2024-02-25 12:00] VITALS: BP 136/69; PULSE 64; RESP 18; TEMP 98.2; O2SAT 96
[2024-02-25] MEDS: LORazepam 2 MG TABLET PO PRN (12:29)
[2024-02-25] MEDS: OLANZapine 5 MG RAPDIS TABLET PO PRN (12:29)
[2024-02-25 13:55] LABS: GLUCOMETER DEV NAME(LOC) 6N.2B; GLUCOSE,POINT OF CARE 129 MG/DL (70-110)
[2024-02-25 16:00] VITALS: BP 141/87; PULSE 68; RESP 18; TEMP 98.2; O2SAT 95
[2024-02-25] MEDS ORDERED: SODIUM CHLORIDE 0.9% 500 ML IV ONE (19:25)
[2024-02-25 20:04] VITALS: BP 115/77; PULSE 79; RESP 18; TEMP 98.1; O2SAT 96
[2024-02-26 04:52] VITALS: BP 128/81; PULSE 83; RESP 19; TEMP 97.7; O2SAT 96
[2024-02-26 05:40] LABS: GLUCOMETER DEV NAME(LOC) 6S.2; GLUCOSE,POINT OF CARE 76 MG/DL (70-110)
[2024-02-26 07:50] VITALS: BP 136/78; PULSE 67; RESP 20; TEMP 97.6; O2SAT 97
[2024-02-26] MEDS: DIVALPROEX SODIUM 500 MG DR TABLET PO SCH (08:13)
[2024-02-26 08:35] LABS: GLUCOMETER DEV NAME(LOC) 6S.2; GLUCOSE,POINT OF CARE 92 MG/DL (70-110)
[2024-02-26 13:30] LABS: BASOPHILS % (AUTO) 0.6 % (0.0-2.0); EOSINOPHILS % (AUTO) 2.1 % (1.0-6.0); HEMOGLOBIN 14.1 g/dL (13.5-17.5); LYMPHOCYTES # (AUTO) 2.7 K/uL (1.0-4.8); LYMPHOCYTES % (AUTO) 25.8 % (22.0-44.0); MEAN CORPUSCULAR HEMOGLOBIN 30.6 pg (26.0-34.0); MEAN CORPUSCULAR HGB CONC 32.8 G/dL (31.0-37.0); MEAN CORPUSCULAR VOLUME 93 fL (80-100); MONOCYTES # (AUTO) 0.9 K/uL (0.1-1.0); NEUTROPHILS # (AUTO) 6.5 K/uL (1.8-7.7); NEUTROPHILS % (AUTO) 62.5 % (40.0-70.0); PLATELET COUNT (AUTO) 305 K/uL (150-450); RED CELL DISTRIBUTION WIDTH 15.2 % (11.5-14.5); WHITE BLOOD COUNT (AUTO) 10.3 K/uL (4.5-11.0)
[2024-02-26 13:55] LABS: ANION GAP 8 mmol/L (8-16); CALCIUM, TOTAL 8.8 mg/dL (8.8-10.5); CARBON DIOXIDE 28 mmol/L (22-29); CHLORIDE 102 mmol/L (98-107); CREATININE 1.09 mg/dL (0.60-1.30); GLOMERULAR FILTR. RATE CALC > 60 mL/min (>60); GLUCOSE,RANDOM 151 mg/dL (70-110); POTASSIUM 4.4 mmol/L (3.5-5.1); SODIUM SERUM 138 mmol/L (136-145); UREA NITROGEN, BLOOD 13 mg/dL (7-18)
[2024-02-26 14:03] LABS: ALANINE AMINOTRANSFERASE 18 U/L (12-78); ALBUMIN 2.5 g/dL (3.4-5.0); ALKALINE PHOSPHATASE 91 U/L (46-116); ASPARTATE AMINOTRANSFERASE 31 U/L (15-37); BILIRUBIN,TOTAL 0.3 mg/dL (0.1-1.0); TOTAL PROTEIN, SERUM 6.6 g/dL (6.4-8.2)
[2024-02-26 16:14] VITALS: BP 131/77; PULSE 61; RESP 18; TEMP 97.4; O2SAT 95
[2024-02-26 19:15] VITALS: BP 115/67; PULSE 65; RESP 18; TEMP 97.8; O2SAT 94
[2024-02-26 19:45] LABS: GLUCOMETER DEV NAME(LOC) 6S.2; GLUCOSE,POINT OF CARE 79 MG/DL (70-110)
[2024-02-26 19:46] LABS: GLUCOMETER DEV NAME(LOC) 6N.2B; GLUCOSE,POINT OF CARE 87 MG/DL (70-110)
[2024-02-26] MEDS: SIMVASTATIN 20 MG TABLET PO SCH (20:12)
[2024-02-27] MEDS ORDERED: SODIUM CHLORIDE 0.9% 500 ML IV ONE (03:59)
[2024-02-27 04:15] VITALS: BP 142/86; PULSE 76; RESP 18; TEMP 97.8; O2SAT 97
[2024-02-27] MEDS: LEVOTHYROXINE SODIUM 50 MCG TABLET PO SCH (06:15)
[2024-02-27 06:46] LABS: GLUCOMETER DEV NAME(LOC) 6N.2B; GLUCOSE,POINT OF CARE 92 MG/DL (70-110)
[2024-02-27 06:46] LABS: GLUCOMETER DEV NAME(LOC) 6S.2; GLUCOSE,POINT OF CARE 102 MG/DL (70-110)
[2024-02-27 07:23] VITALS: BP 124/73; PULSE 63; RESP 18; TEMP 97.5; O2SAT 93
[2024-02-27] MEDS: LISINOPRIL 5 MG TABLET PO SCH (08:38)
[2024-02-27] MEDS ORDERED: LEVO50 PO (13:42)
[2024-02-27] MEDS ORDERED: DIVA-112 PO (13:43)
[2024-02-27] MEDS ORDERED: FAMO20 PO (13:44)
[2024-02-27] MEDS ORDERED: MELA1TAB28 PO (13:45)
[2024-02-27] MEDS ORDERED: QUET200T PO (13:47)
[2024-02-27] MEDS ORDERED: INSU100V SQ (13:48)
[2024-02-27] MEDS ORDERED: LORA-1001 PO (13:55)
[2024-02-27] MEDS ORDERED: MAGN-169 PO (13:56)
[2024-02-27] MEDS ORDERED: ZOLP-280 PO (13:58)
[2024-02-27] MEDS ORDERED: OLAN5TAB94 PO (13:58)
[2024-02-27 15:59] VITALS: BP 114/74; PULSE 65; RESP 18; TEMP 98; O2SAT 93
[2024-02-27 19:23] VITALS: BP 107/66; PULSE 75; RESP 18; TEMP 98.5; O2SAT 97
[2024-02-28 00:06] LABS: GLUCOMETER DEV NAME(LOC) 6N.2B; GLUCOSE,POINT OF CARE 93 MG/DL (70-110)
[2024-02-28 00:06] LABS: GLUCOMETER DEV NAME(LOC) 6N.2B; GLUCOSE,POINT OF CARE 79 MG/DL (70-110)
[2024-02-28 00:10] LABS: GLUCOMETER DEV NAME(LOC) 6S.1D; GLUCOSE,POINT OF CARE 116 MG/DL (70-110)
[2024-02-28 07:04] VITALS: BP 110/72; PULSE 68; RESP 18; TEMP 98.4; O2SAT 97
[2024-02-28 12:01] LABS: GLUCOMETER DEV NAME(LOC) 6S.2; GLUCOSE,POINT OF CARE 85 MG/DL (70-110)
[2024-02-28 15:32] VITALS: BP 130/82; PULSE 69; RESP 20; TEMP 98.4; O2SAT 95
[2024-02-28 20:07] VITALS: BP 110/75; PULSE 79; RESP 19; TEMP 98; O2SAT 95
[2024-02-29 05:01] LABS: GLUCOMETER DEV NAME(LOC) 6N.2B; GLUCOSE,POINT OF CARE 119 MG/DL (70-110)
[2024-02-29 05:22] VITALS: BP 109/77; PULSE 89; RESP 19; TEMP 97.7; O2SAT 98
[2024-02-29 08:39] VITALS: BP 108/60; PULSE 77; RESP 18; TEMP 98.3; O2SAT 99
[2024-02-29 16:42] VITALS: BP 128/81; PULSE 75; RESP 18; TEMP 98; O2SAT 98
[2024-02-29 16:46] LABS: GLUCOMETER DEV NAME(LOC) 6N.2B; GLUCOSE,POINT OF CARE 106 MG/DL (70-110)
[2024-02-29 16:46] LABS: GLUCOMETER DEV NAME(LOC) 6N.2B; GLUCOSE,POINT OF CARE 106 MG/DL (70-110)
[2024-02-29 19:20] VITALS: BP 120/58; PULSE 74; RESP 17; TEMP 97.7; O2SAT 99
[2024-02-29 19:31] LABS: GLUCOMETER DEV NAME(LOC) 6S.2; GLUCOSE,POINT OF CARE 95 MG/DL (70-110)
[2024-03-01 04:50] VITALS: BP 126/78; PULSE 65; RESP 18; TEMP 97.7; O2SAT 97
[2024-03-01 05:26] LABS: GLUCOMETER DEV NAME(LOC) 6N.2B; GLUCOSE,POINT OF CARE 94 MG/DL (70-110)
[2024-03-01 08:02] VITALS: BP 117/75; PULSE 74; RESP 18; TEMP 97.8; O2SAT 97
[2024-03-01 10:16] LABS: GLUCOMETER DEV NAME(LOC) 6S.2; GLUCOSE,POINT OF CARE 70 MG/DL (70-110)
[2024-03-01 12:16] LABS: GLUCOMETER DEV NAME(LOC) 6S.2; GLUCOSE,POINT OF CARE 92 MG/DL (70-110)
[2024-03-01 16:22] VITALS: BP 141/94; PULSE 77; RESP 18; TEMP 97.8; O2SAT 95
[2024-03-01] MEDS: QUEtiapine FUMARATE 200 MG TABLET PO ONE (16:52)
[2024-03-01 19:56] LABS: GLUCOMETER DEV NAME(LOC) 6N.2B; GLUCOSE,POINT OF CARE 183 MG/DL (70-110)
[2024-03-01 20:34] VITALS: BP 118/81; PULSE 81; RESP 16; TEMP 97.8; O2SAT 95
[2024-03-01] MEDS: QUEtiapine FUMARATE 200 MG TABLET PO SCH (21:10)
[2024-03-01] MEDS: DIVALPROEX SODIUM 500 MG DR TABLET PO SCH (21:11)
[2024-03-02 04:04] VITALS: BP 122/63; PULSE 79; RESP 16; TEMP 97.7; O2SAT 95
[2024-03-02 05:45] LABS: GLUCOMETER DEV NAME(LOC) 6N.2B; GLUCOSE,POINT OF CARE 117 MG/DL (70-110)
[2024-03-02] MEDS: MAGNESIUM HYDROXIDE SUSPENSION 30 ML UDCUP PO PRN (06:44)
[2024-03-02 07:41] LABS: GLUCOMETER DEV NAME(LOC) 6S.2; GLUCOSE,POINT OF CARE 83 MG/DL (70-110)
[2024-03-02 07:45] VITALS: BP 135/84; PULSE 76; RESP 20; TEMP 97.6; O2SAT 92
[2024-03-02 11:06] LABS: BASOPHILS % (AUTO) 0.5 % (0.0-2.0); HEMATOCRIT 45.3 % (41-53); HEMOGLOBIN 15.1 g/dL (13.5-17.5); LYMPHOCYTES # (AUTO) 2.1 K/uL (1.0-4.8); LYMPHOCYTES % (AUTO) 27.3 % (22.0-44.0); MEAN CORPUSCULAR HEMOGLOBIN 30.4 pg (26.0-34.0); MEAN CORPUSCULAR HGB CONC 33.3 G/dL (31.0-37.0); MEAN CORPUSCULAR VOLUME 91 fL (80-100); MONOCYTES # (AUTO) 0.5 K/uL (0.1-1.0); MONOCYTES % (AUTO) 6.7 % (2.0-9.0); NEUTROPHILS % (AUTO) 64.5 % (40.0-70.0); PLATELET COUNT (AUTO) 316 K/uL (150-450); RED BLOOD CELL COUNT(AUTO) 4.96 MIL/uL (4.50-5.90); RED CELL DISTRIBUTION WIDTH 14.6 % (11.5-14.5); WHITE BLOOD COUNT (AUTO) 7.8 K/uL (4.5-11.0)
[2024-03-02 11:53] LABS: ANION GAP 6 mmol/L (8-16); CALCIUM, TOTAL 8.9 mg/dL (8.8-10.5); CARBON DIOXIDE 32 mmol/L (22-29); CHLORIDE 100 mmol/L (98-107); CREATININE 1.08 mg/dL (0.60-1.30); GLOMERULAR FILTR. RATE CALC > 60 mL/min (>60); GLUCOSE,RANDOM 140 mg/dL (70-110); POTASSIUM 4.5 mmol/L (3.5-5.1); SODIUM SERUM 138 mmol/L (136-145); UREA NITROGEN, BLOOD 23 mg/dL (7-18)
[2024-03-02] MEDS ORDERED: SODIUM CHLORIDE 0.9% IRRIG BTL 1,000 ML IRRIG ONE (16:39)
[2024-03-02] MEDS ORDERED: ALBUTEROL SULFATE 2.5 MG/0.5 ML NEB SOLUTION NEB PRN (19:45)
[2024-03-03 05:11] VITALS: BP 132/89; PULSE 66; RESP 19; TEMP 97.7; O2SAT 95
[2024-03-03 06:26] LABS: GLUCOMETER DEV NAME(LOC) 6N.2B; GLUCOSE,POINT OF CARE 122 MG/DL (70-110)
[2024-03-03 06:26] LABS: GLUCOMETER DEV NAME(LOC) 6S.2; GLUCOSE,POINT OF CARE 111 MG/DL (70-110)
[2024-03-03 06:26] LABS: GLUCOMETER DEV NAME(LOC) 6S.2; GLUCOSE,POINT OF CARE 92 MG/DL (70-110)
[2024-03-03 06:26] LABS: GLUCOMETER DEV NAME(LOC) 6S.2; GLUCOSE,POINT OF CARE 95 MG/DL (70-110)
[2024-03-03] MEDS: ALBUTEROL SULFATE 2.5 MG/0.5 ML NEB SOLUTION NEB PRN (08:59)
[2024-03-03 09:00] VITALS: PULSE 88; RESP 16; O2SAT 98; O2SAT 99
[2024-03-03 09:13] VITALS: BP 115/70; PULSE 81; TEMP 97.8; O2SAT 92
[2024-03-03] MEDS: HEPARIN SODIUM,PORCINE 5,000 UNITS/ML VIAL SQ SCH (09:15)
[2024-03-03 12:11] LABS: GLUCOMETER DEV NAME(LOC) 6S.2; GLUCOSE,POINT OF CARE 105 MG/DL (70-110)
[2024-03-03 17:56] LABS: GLUCOMETER DEV NAME(LOC) 6S.2; GLUCOSE,POINT OF CARE 77 MG/DL (70-110)
[2024-03-03 19:30] VITALS: BP 119/74; PULSE 80; RESP 18; TEMP 97.8; O2SAT 95
[2024-03-03 22:26] LABS: GLUCOMETER DEV NAME(LOC) 6S.2; GLUCOSE,POINT OF CARE 133 MG/DL (70-110)
[2024-03-04 05:42] VITALS: BP 132/70; PULSE 87; RESP 18; TEMP 98; O2SAT 92
[2024-03-04 07:41] LABS: GLUCOMETER DEV NAME(LOC) 6S.2; GLUCOSE,POINT OF CARE 91 MG/DL (70-110)
[2024-03-04 08:26] VITALS: BP 118/77; PULSE 73; RESP 18; TEMP 98.1; O2SAT 94
[2024-03-04 12:00] LABS: GLUCOMETER DEV NAME(LOC) 6S.1D; GLUCOSE,POINT OF CARE 87 MG/DL (70-110)
[2024-03-04 12:00] LABS: GLUCOMETER DEV NAME(LOC) 6S.1D; GLUCOSE,POINT OF CARE 103 MG/DL (70-110)
[2024-03-04 16:12] VITALS: BP 128/85; PULSE 63; RESP 18; TEMP 98; O2SAT 94
[2024-03-04 17:20] LABS: GLUCOMETER DEV NAME(LOC) 6S.2; GLUCOSE,POINT OF CARE 109 MG/DL (70-110)
[2024-03-04 20:33] VITALS: BP 122/87; PULSE 82; RESP 18; TEMP 97.6; O2SAT 97
[2024-03-04 22:01] LABS: GLUCOMETER DEV NAME(LOC) 6N.2B; GLUCOSE,POINT OF CARE 122 MG/DL (70-110)
[2024-03-05 05:17] VITALS: BP 127/72; PULSE 54; RESP 18; TEMP 97.8; O2SAT 95
[2024-03-05 07:22] VITALS: BP 149/83; PULSE 89; RESP 18; TEMP 98.5; O2SAT 92
[2024-03-05 07:26] VITALS: BP 119/75; PULSE 62; RESP 18; TEMP 98.6; O2SAT 92
[2024-03-05 11:50] LABS: GLUCOMETER DEV NAME(LOC) 6S.2; GLUCOSE,POINT OF CARE 88 MG/DL (70-110)
[2024-03-05 11:50] LABS: GLUCOMETER DEV NAME(LOC) 6S.2; GLUCOSE,POINT OF CARE 72 MG/DL (70-110)
[2024-03-05 15:55] VITALS: BP 121/80; PULSE 80; RESP 18; TEMP 98.6; O2SAT 97
[2024-03-05 20:30] VITALS: BP 119/73; PULSE 76; RESP 18; TEMP 98.1; O2SAT 93
[2024-03-06 05:00] VITALS: BP 147/81; PULSE 81; RESP 20; TEMP 98.3; O2SAT 94
[2024-03-06 06:36] LABS: GLUCOMETER DEV NAME(LOC) 6N.2B; GLUCOSE,POINT OF CARE 108 MG/DL (70-110)
[2024-03-06 06:36] LABS: GLUCOMETER DEV NAME(LOC) 6N.2B; GLUCOSE,POINT OF CARE 135 MG/DL (70-110)
[2024-03-06 06:40] LABS: GLUCOMETER DEV NAME(LOC) 6S.1D; GLUCOSE,POINT OF CARE 84 MG/DL (70-110)
[2024-03-06 08:30] VITALS: BP 142/91; PULSE 79; RESP 20; TEMP 98.2; O2SAT 93
[2024-03-06 18:23] VITALS: BP 121/77; PULSE 77; RESP 18; TEMP 97.8; O2SAT 93
[2024-03-06 19:33] VITALS: BP 131/76; PULSE 80; RESP 18; TEMP 97.7; O2SAT 94
[2024-03-06 22:15] LABS: GLUCOMETER DEV NAME(LOC) 6S.1D; GLUCOSE,POINT OF CARE 109 MG/DL (70-110)
[2024-03-07 06:01] LABS: GLUCOMETER DEV NAME(LOC) 6N.2B; GLUCOSE,POINT OF CARE 88 MG/DL (70-110)
[2024-03-07 06:01] LABS: GLUCOMETER DEV NAME(LOC) 6N.2B; GLUCOSE,POINT OF CARE 68 MG/DL (70-110)
[2024-03-07 06:29] VITALS: BP 128/75; PULSE 79; RESP 18; TEMP 97.8; O2SAT 95
[2024-03-07 07:26] VITALS: BP 130/76; PULSE 80; RESP 20; TEMP 98.2; O2SAT 96
[2024-03-07 16:08] VITALS: BP 127/79; PULSE 89; RESP 20; TEMP 98; O2SAT 95
[2024-03-07 20:26] LABS: GLUCOMETER DEV NAME(LOC) 6N.2B; GLUCOSE,POINT OF CARE 125 MG/DL (70-110)
[2024-03-07 20:26] LABS: GLUCOMETER DEV NAME(LOC) 6N.2B; GLUCOSE,POINT OF CARE 99 MG/DL (70-110)
[2024-03-07 20:55] VITALS: BP 136/82; PULSE 80; RESP 18; TEMP 97.8; O2SAT 95
[2024-03-08 01:11] LABS: GLUCOMETER DEV NAME(LOC) 6N.2B; GLUCOSE,POINT OF CARE 93 MG/DL (70-110)
[2024-03-08 04:59] VITALS: BP 119/74; PULSE 80; RESP 18; TEMP 98; O2SAT 97
[2024-03-08 08:44] VITALS: BP 119/85; PULSE 79; RESP 20; TEMP 97.6; O2SAT 94
[2024-03-08 09:00] LABS: GLUCOMETER DEV NAME(LOC) 6N.2B; GLUCOSE,POINT OF CARE 139 MG/DL (70-110)
[2024-03-08 15:30] VITALS: BP 130/80; PULSE 80; RESP 20; TEMP 98.4; O2SAT 100
[2024-03-08 17:25] LABS: GLUCOMETER DEV NAME(LOC) 6S.2; GLUCOSE,POINT OF CARE 94 MG/DL (70-110)
[2024-03-08 19:06] LABS: GLUCOMETER DEV NAME(LOC) 6N.2B; GLUCOSE,POINT OF CARE 102 MG/DL (70-110)
[2024-03-08 19:54] VITALS: BP 116/66; PULSE 80; RESP 20; TEMP 97.9; O2SAT 95
[2024-03-08 22:26] LABS: GLUCOMETER DEV NAME(LOC) 6S.2; GLUCOSE,POINT OF CARE 220 MG/DL (70-110)
[2024-03-09 05:15] VITALS: BP 150/83; PULSE 61; RESP 18; TEMP 97.8; O2SAT 95
[2024-03-09 07:23] VITALS: BP 125/71; PULSE 91; RESP 18; TEMP 97.8; O2SAT 92
[2024-03-09 08:16] LABS: GLUCOMETER DEV NAME(LOC) 6S.2; GLUCOSE,POINT OF CARE 87 MG/DL (70-110)
[2024-03-09 20:21] LABS: GLUCOMETER DEV NAME(LOC) 6N.2B; GLUCOSE,POINT OF CARE 98 MG/DL (70-110)
[2024-03-09 20:21] LABS: GLUCOMETER DEV NAME(LOC) 6N.2B; GLUCOSE,POINT OF CARE 142 MG/DL (70-110)
[2024-03-09 21:01] VITALS: BP 134/83; PULSE 85; RESP 18; TEMP 98.2; O2SAT 95
[2024-03-10 05:51] VITALS: BP 133/75; PULSE 80; RESP 19; TEMP 97.8; O2SAT 95
[2024-03-10 07:40] LABS: GLUCOMETER DEV NAME(LOC) 6S.1D; GLUCOSE,POINT OF CARE 113 MG/DL (70-110)
[2024-03-10 07:40] LABS: GLUCOMETER DEV NAME(LOC) 6S.1D; GLUCOSE,POINT OF CARE 134 MG/DL (70-110)
[2024-03-10 07:51] VITALS: BP 135/87; PULSE 78; RESP 17; TEMP 98; O2SAT 94
[2024-03-10 13:26] LABS: GLUCOMETER DEV NAME(LOC) 6N.2B; GLUCOSE,POINT OF CARE 106 MG/DL (70-110)
[2024-03-10 17:31] LABS: GLUCOMETER DEV NAME(LOC) 6S.1D; GLUCOSE,POINT OF CARE 93 MG/DL (70-110)
[2024-03-10 19:41] VITALS: BP 122/76; PULSE 76; RESP 18; TEMP 97.9; O2SAT 95
[2024-03-10 21:51] LABS: GLUCOMETER DEV NAME(LOC) 6S.2; GLUCOSE,POINT OF CARE 96 MG/DL (70-110)
[2024-03-11 03:55] VITALS: BP 110/71; PULSE 77; RESP 18; TEMP 98.6; O2SAT 93
[2024-03-11 07:11] LABS: GLUCOMETER DEV NAME(LOC) 6S.2; GLUCOSE,POINT OF CARE 88 MG/DL (70-110)
[2024-03-11 08:48] LABS: BASOPHILS % (AUTO) 0.3 % (0.0-2.0); EOSINOPHILS % (AUTO) 0.6 % (1.0-6.0); HEMOGLOBIN 15.1 g/dL (13.5-17.5); LYMPHOCYTES # (AUTO) 1.7 K/uL (1.0-4.8); LYMPHOCYTES % (AUTO) 20.6 % (22.0-44.0); MEAN CORPUSCULAR HEMOGLOBIN 30.6 pg (26.0-34.0); MEAN CORPUSCULAR HGB CONC 33.5 G/dL (31.0-37.0); MEAN CORPUSCULAR VOLUME 91 fL (80-100); MONOCYTES # (AUTO) 1.1 K/uL (0.1-1.0); MONOCYTES % (AUTO) 12.7 % (2.0-9.0); NEUTROPHILS # (AUTO) 5.4 K/uL (1.8-7.7); NEUTROPHILS % (AUTO) 65.8 % (40.0-70.0); PLATELET COUNT (AUTO) 192 K/uL (150-450); RED BLOOD CELL COUNT(AUTO) 4.93 MIL/uL (4.50-5.90); RED CELL DISTRIBUTION WIDTH 14.9 % (11.5-14.5); WHITE BLOOD COUNT (AUTO) 8.3 K/uL (4.5-11.0)
[2024-03-11 09:06] LABS: ANION GAP 1 mmol/L (8-16); CALCIUM, TOTAL 8.8 mg/dL (8.8-10.5); CARBON DIOXIDE 34 mmol/L (22-29); CHLORIDE 101 mmol/L (98-107); CREATININE 0.97 mg/dL (0.60-1.30); GLOMERULAR FILTR. RATE CALC > 60 mL/min (>60); GLUCOSE,RANDOM 98 mg/dL (70-110); POTASSIUM 4.8 mmol/L (3.5-5.1); SODIUM SERUM 136 mmol/L (136-145); UREA NITROGEN, BLOOD 21 mg/dL (7-18)
[2024-03-11 11:37] LABS: GLUCOMETER DEV NAME(LOC) 6N.2B; GLUCOSE,POINT OF CARE 77 MG/DL (70-110)
== END 2024-03-11 15:30 | DRG 689 ==
LOC: EMS 14:00 → EDH 16:04 → 6S 20:00 → 6N 02-26 15:44 → 6S 03-03 09:29 → UNDODISIN 03-11 15:30
PROVIDERS: ADMIT Internal Medicine; ATTEND Internal Medicine
DX: N39.0 Urinary tract infection, site not specified (principal); G92.8 Other toxic encephalopathy; J96.01 Acute respiratory failure with hypoxia; Z16.24 Resistance to multiple antibiotics; Z16.12 Extended spectrum beta lactamase (ESBL) resistance; E11.9 Type 2 diabetes mellitus without complications; E03.9 Hypothyroidism, unspecified; F25.0 Schizoaffective disorder, bipolar type; B96.20 Unspecified Escherichia coli [E. coli] as the cause of diseases classified elsewhere; E78.00 Pure hypercholesterolemia, unspecified; J44.9 Chronic obstructive pulmonary disease, unspecified; R62.7 Adult failure to thrive; G47.00 Insomnia, unspecified; K21.9 Gastro-esophageal reflux disease without esophagitis; K59.00 Constipation, unspecified; Z88.8 Allergy status to other drugs, medicaments and biological substances; R13.10 Dysphagia, unspecified; Z78.1 Physical restraint status
CPT/HCPCS: 71045; 80048; 80053; 80164; 80307; 81001; 82962; 83605; 83690; 83880; 84443; 84484; 85025; 85379; 87077; 87086; 87186; 92610; 93970; 94640; 97116; 97162; 97530; 99285; G0480; J1200; J1644; J2060; J2185; J3230; J7040; J7050; 36415-L1; 36415-TC; J7613

== ENCOUNTER 2024-05-27 14:11 | Inpatient (IN) | payer MEDICARE, OTHER ==
[~2024-05-27] VITALS: Ht 167.6 cm; Wt 55.7 kg
[~2024-05-27 14:11] MED LIST changes: -ACET-2247 PO; -CIPR250T6 PO; -CITA-144 PO; +DIVA-112 PO; -DIVA-153 PO; -HEPA500018 SQ; -OLAN5TAB52 PO
[2024-05-27 16:31] LABS: COVID AG,FIA SOURCE NASAL SWAB
[2024-05-27 16:50] LABS: BASOPHILS % (AUTO) 0.2 % (0.0-2.0); EOSINOPHILS % (AUTO) 0.3 % (1.0-6.0); HEMATOCRIT 38.5 % (41-53); HEMOGLOBIN 12.4 g/dL (13.5-17.5); LYMPHOCYTES # (AUTO) 2.1 K/uL (1.0-4.8); LYMPHOCYTES % (AUTO) 12.3 % (22.0-44.0); MEAN CORPUSCULAR HEMOGLOBIN 30.1 pg (26.0-34.0); MEAN CORPUSCULAR HGB CONC 32.3 G/dL (31.0-37.0); MEAN CORPUSCULAR VOLUME 93 fL (80-100); MONOCYTES # (AUTO) 1.9 K/uL (0.1-1.0); MONOCYTES % (AUTO) 11.1 % (2.0-9.0); NEUTROPHILS # (AUTO) 12.9 K/uL (1.8-7.7); NEUTROPHILS % (AUTO) 76.1 % (40.0-70.0); PLATELET COUNT (AUTO) 304 K/uL (150-450); RED BLOOD CELL COUNT(AUTO) 4.13 MIL/uL (4.50-5.90); RED CELL DISTRIBUTION WIDTH 16.9 % (11.5-14.5); WHITE BLOOD COUNT (AUTO) 16.9 K/uL (4.5-11.0)
[2024-05-27 16:51] LABS: SARS-COV2 (COVID) ANTIGEN,FIA Negative (Negative)
[2024-05-27 16:59] LABS: ANION GAP 7 mmol/L (8-16); CALCIUM, TOTAL 8.7 mg/dL (8.8-10.5); CARBON DIOXIDE 33 mmol/L (22-29); CHLORIDE 103 mmol/L (98-107); CREATININE 1.63 mg/dL (0.60-1.30); GLOMERULAR FILTR. RATE CALC 43 mL/min (>60); GLUCOSE,RANDOM 97 mg/dL (70-110); SODIUM SERUM 143 mmol/L (136-145); UREA NITROGEN, BLOOD 37 mg/dL (7-18)
[2024-05-27 17:03] LABS: ALCOHOL, BLOOD (SERUM) < 3 mg/dL (0-10)
[2024-05-27 17:04] LABS: ALBUMIN 3.2 g/dL (3.4-5.0); BILIRUBIN,DIRECT 0.1 mg/dL (0.00-0.20); BILIRUBIN,TOTAL 0.2 mg/dL (0.1-1.0); TOTAL PROTEIN, SERUM 7.3 g/dL (6.4-8.2)
[2024-05-27] MEDS: CefTRIAXone 1 GM/DEXTROSE 50 ML IV ONE (18:06)
[2024-05-27] MEDS ORDERED: 0.9% SODIUM CHLORIDE 10 ML SYRINGE IVP PRN (20:00)
[2024-05-27] MEDS ORDERED: IPRATROPIUM BROMIDE 0.5 MG/2.5 ML NEB SOLUTION NEB PRN (20:00)
[2024-05-27] MEDS ORDERED: ONDANSETRON HCL 4 MG/2 ML VIAL IVP PRN (20:00)
[2024-05-27] MEDS ORDERED: ALBUTEROL SULFATE 2.5 MG/0.5 ML NEB SOLUTION NEB PRN (20:00)
[2024-05-27] MEDS: LORazepam 2 MG/ML VIAL IVP ONE (20:10)
[2024-05-27] MEDS: ZIPRASIDONE MESYLATE 20 MG/VIAL IM ONE ×2 (20:10→20:11)
[2024-05-27] MEDS: HALOPERIDOL LACTATE 5 MG/ML VIAL IM ONE (20:10)
[2024-05-27] MEDS: LORazepam 2 MG/ML VIAL IM ONE (20:11)
[2024-05-27] MEDS: DiphenhydrAMINE HCL 50 MG/ML VIAL IM ONE (20:11)
[2024-05-27] MEDS: SODIUM CHLORIDE 0.9% 1,900 ML IV ONE (20:29)
[2024-05-27] MEDS: AZITHROMYCIN 500 MG/NS 250 ML IV ONE (20:29)
[2024-05-27 20:38] LABS: BASOPHILS % (AUTO) 0.1 % (0.0-2.0); EOSINOPHILS % (AUTO) 0.3 % (1.0-6.0); HEMATOCRIT 40.6 % (41-53); HEMOGLOBIN 12.8 g/dL (13.5-17.5); LYMPHOCYTES # (AUTO) 4.5 K/uL (1.0-4.8); LYMPHOCYTES % (AUTO) 23.9 % (22.0-44.0); MEAN CORPUSCULAR HEMOGLOBIN 29.9 pg (26.0-34.0); MEAN CORPUSCULAR HGB CONC 31.7 G/dL (31.0-37.0); MEAN CORPUSCULAR VOLUME 95 fL (80-100); MONOCYTES # (AUTO) 2.2 K/uL (0.1-1.0); MONOCYTES % (AUTO) 11.8 % (2.0-9.0); NEUTROPHILS # (AUTO) 12.1 K/uL (1.8-7.7); NEUTROPHILS % (AUTO) 63.9 % (40.0-70.0); PLATELET COUNT (AUTO) 316 K/uL (150-450); RED BLOOD CELL COUNT(AUTO) 4.29 MIL/uL (4.50-5.90)
[2024-05-27 20:56] LABS: LACTIC ACID 4.6 mmol/L (0.4-2.0)
[2024-05-27 20:58] LABS: TROPONIN I-HIGH SENSITIVITY 25 ng/L (<76)
[2024-05-27 21:00] LABS: ANION GAP 8 mmol/L (8-16); CARBON DIOXIDE 28 mmol/L (22-29); CHLORIDE 104 mmol/L (98-107); CREATININE 1.66 mg/dL (0.60-1.30); GLOMERULAR FILTR. RATE CALC 42 mL/min (>60); GLUCOSE,RANDOM 109 mg/dL (70-110); POTASSIUM 4.4 mmol/L (3.5-5.1); SODIUM SERUM 140 mmol/L (136-145); UREA NITROGEN, BLOOD 35 mg/dL (7-18)
[2024-05-27] MEDS: DOCUSATE SODIUM 100 MG CAPSULE PO SCH (21:00)
[2024-05-27 21:04] LABS: ALANINE AMINOTRANSFERASE 12 U/L (12-78); ALBUMIN 3.4 g/dL (3.4-5.0); ALKALINE PHOSPHATASE 86 U/L (46-116); ASPARTATE AMINOTRANSFERASE 23 U/L (15-37); BILIRUBIN,TOTAL 0.3 mg/dL (0.1-1.0)
[2024-05-27 21:15] LABS: LACTATE DEHYDROGENASE 213 U/L (85-227)
[2024-05-27 21:16] LABS: INFLUENZA TYPE A NEGATIVE FOR TYPE A (NEGATIVE); INFLUENZA TYPE B NEGATIVE FOR TYPE B (NEGATIVE)
[2024-05-27 22:30] VITALS: BP 102/48; PULSE 70; RESP 19; TEMP 97.7; O2SAT 97
[2024-05-28] VITALS (7 sets, daily range): BP systolic 100–129; BP diastolic 54–96; PULSE 60–81; RESP 16–19; TEMP 97.8–98.6; O2SAT 93–99
[2024-05-28] MEDS: HEPARIN SODIUM,PORCINE 5,000 UNITS/ML VIAL SQ SCH (00:53)
[2024-05-28] MEDS: LORazepam 2 MG/ML VIAL IVP ONE ×2 (05:04→22:22)
[2024-05-28] MEDS: ZIPRASIDONE MESYLATE 20 MG/VIAL IM ONE (05:25)
[2024-05-28 06:59] LABS: BASOPHILS % (AUTO) 0.2 % (0.0-2.0); EOSINOPHILS % (AUTO) 0.5 % (1.0-6.0); HEMATOCRIT 37.1 % (41-53); HEMOGLOBIN 12.1 g/dL (13.5-17.5); LYMPHOCYTES # (AUTO) 2.2 K/uL (1.0-4.8); LYMPHOCYTES % (AUTO) 17.6 % (22.0-44.0); MEAN CORPUSCULAR HEMOGLOBIN 30.3 pg (26.0-34.0); MEAN CORPUSCULAR HGB CONC 32.6 G/dL (31.0-37.0); MEAN CORPUSCULAR VOLUME 93 fL (80-100); MONOCYTES # (AUTO) 1.6 K/uL (0.1-1.0); MONOCYTES % (AUTO) 12.8 % (2.0-9.0); NEUTROPHILS # (AUTO) 8.6 K/uL (1.8-7.7); NEUTROPHILS % (AUTO) 68.9 % (40.0-70.0); PLATELET COUNT (AUTO) 280 K/uL (150-450); RED BLOOD CELL COUNT(AUTO) 3.99 MIL/uL (4.50-5.90); RED CELL DISTRIBUTION WIDTH 17.1 % (11.5-14.5); WHITE BLOOD COUNT (AUTO) 12.5 K/uL (4.5-11.0)
[2024-05-28 07:20] LABS: GLUCOMETER DEV NAME(LOC) 5S.2D; GLUCOSE,POINT OF CARE 81 MG/DL (70-110)
[2024-05-28 07:20] LABS: GLUCOMETER DEV NAME(LOC) 5S.2D; GLUCOSE,POINT OF CARE 77 MG/DL (70-110)
[2024-05-28] MEDS ORDERED: ATROPINE SULFATE 0.1 MG/ML 10 ML SYRINGE IVP PRN (07:45)
[2024-05-28] MEDS: DEXTROSE 5%-LACTATED RINGERS 1,000 ML IV ONE (08:50)
[2024-05-28] MEDS: DOXYCYCLINE HYCLATE 100 MG in DEXTROSE 5%-WATER 100 ML IV SCH (08:50)
[2024-05-28 14:06] LABS: GLUCOMETER DEV NAME(LOC) 5S.2D; GLUCOSE,POINT OF CARE 76 MG/DL (70-110)
[2024-05-28] MEDS: CefTRIAXone 1 GM/DEXTROSE 50 ML IV SCH (17:13)
[2024-05-28 21:36] LABS: GLUCOMETER DEV NAME(LOC) 5S.2D; GLUCOSE,POINT OF CARE 102 MG/DL (70-110)
[2024-05-28] MEDS ORDERED: HALOPERIDOL LACTATE 5 MG/ML VIAL IM ONE (21:45)
[2024-05-29] MEDS: ZIPRASIDONE MESYLATE 20 MG/VIAL IM ONE (00:59)
[2024-05-29 03:36] VITALS: BP 119/70; PULSE 57; RESP 18; TEMP 98.2; O2SAT 95
[2024-05-29 06:50] LABS: BASOPHILS % (AUTO) 0.4 % (0.0-2.0); EOSINOPHILS % (AUTO) 0.9 % (1.0-6.0); HEMATOCRIT 39.1 % (41-53); HEMOGLOBIN 12.8 g/dL (13.5-17.5); LYMPHOCYTES % (AUTO) 28.2 % (22.0-44.0); MEAN CORPUSCULAR HEMOGLOBIN 30.7 pg (26.0-34.0); MEAN CORPUSCULAR HGB CONC 32.7 G/dL (31.0-37.0); MEAN CORPUSCULAR VOLUME 94 fL (80-100); MONOCYTES # (AUTO) 1.4 K/uL (0.1-1.0); MONOCYTES % (AUTO) 12.8 % (2.0-9.0); NEUTROPHILS # (AUTO) 6.2 K/uL (1.8-7.7); NEUTROPHILS % (AUTO) 57.7 % (40.0-70.0); PLATELET COUNT (AUTO) 274 K/uL (150-450); RED BLOOD CELL COUNT(AUTO) 4.17 MIL/uL (4.50-5.90); RED CELL DISTRIBUTION WIDTH 16.4 % (11.5-14.5); WHITE BLOOD COUNT (AUTO) 10.7 K/uL (4.5-11.0)
[2024-05-29 07:20] LABS: ANION GAP 4 mmol/L (8-16); CALCIUM, TOTAL 9.1 mg/dL (8.8-10.5); CARBON DIOXIDE 32 mmol/L (22-29); CHLORIDE 104 mmol/L (98-107); CREATININE 1.08 mg/dL (0.60-1.30); GLOMERULAR FILTR. RATE CALC > 60 mL/min (>60); GLUCOSE,RANDOM 87 mg/dL (70-110); POTASSIUM 4.4 mmol/L (3.5-5.1); SODIUM SERUM 139 mmol/L (136-145); TROPONIN I-HIGH SENSITIVITY 30 ng/L (<76); UREA NITROGEN, BLOOD 23 mg/dL (7-18)
[2024-05-29 07:41] LABS: THYROID STIMULATING HORMONE 2.89 uIU/mL (0.36-3.74)
[2024-05-29 07:46] VITALS: BP_SYST 129; BP_SYST 147; BP_DIAS 77; BP_DIAS 86; PULSE 67; PULSE 69; RESP 18; TEMP 98; O2SAT 96
[2024-05-29 08:51] LABS: GLUCOMETER DEV NAME(LOC) 5N.2C; GLUCOSE,POINT OF CARE 92 MG/DL (70-110)
[2024-05-29] MEDS ORDERED: SODIUM CHLORIDE 0.9% 500 ML IV ONE (11:17)
[2024-05-29 11:45] LABS: GLUCOMETER DEV NAME(LOC) 5S.2D; GLUCOSE,POINT OF CARE 95 MG/DL (70-110)
[2024-05-29 11:49] VITALS: BP 124/82; PULSE 67; RESP 19; TEMP 98.1; O2SAT 95
[2024-05-29] MEDS: DiphenhydrAMINE HCL 50 MG/ML VIAL IM ONE (11:59)
[2024-05-29] MEDS: LORazepam 2 MG/ML VIAL IM ONE (12:00)
[2024-05-29] MEDS: FluPHENAZine HCL 2.5 MG/ML INJ IM ONE (14:11)
[2024-05-29] MEDS: LORazepam 2 MG TABLET PO PRN (16:47)
[2024-05-29] MEDS: INSULIN LISPRO 100 UNITS/ML SQ PRN (18:13)
[2024-05-29 18:25] LABS: GLUCOMETER DEV NAME(LOC) 5N.2C; GLUCOSE,POINT OF CARE 159 MG/DL (70-110)
[2024-05-29 20:28] VITALS: BP 131/80; PULSE 91; RESP 19; TEMP 97.6; O2SAT 94
[2024-05-29] MEDS: QUEtiapine FUMARATE 200 MG TABLET PO SCH (20:43)
[2024-05-29 22:16] LABS: GLUCOMETER DEV NAME(LOC) 5S.2D; GLUCOSE,POINT OF CARE 76 MG/DL (70-110)
[2024-05-30 00:12] VITALS: BP 110/67; PULSE 80; RESP 18; TEMP 97.9; O2SAT 97
[2024-05-30 05:06] VITALS: BP 116/68; PULSE 69; RESP 18; TEMP 97.8; O2SAT 95
[2024-05-30 08:41] VITALS: BP 109/75; PULSE 64; RESP 19; TEMP 97.9; O2SAT 92
[2024-05-30 12:07] LABS: GLUCOMETER DEV NAME(LOC) 5S.2D; GLUCOSE,POINT OF CARE 146 MG/DL (70-110)
[2024-05-30 12:07] LABS: GLUCOMETER DEV NAME(LOC) 5N.2C; GLUCOSE,POINT OF CARE 104 MG/DL (70-110)
[2024-05-30 12:12] VITALS: BP 124/87; PULSE 82; RESP 19; TEMP 98.9; O2SAT 97
[2024-05-30] MEDS: FUROSEMIDE 20 MG/2 ML VIAL IVP ONE (12:13)
[2024-05-30 15:51] VITALS: BP 132/78; PULSE 81; RESP 20; TEMP 98; O2SAT 94
[2024-05-30 19:46] LABS: APPEARANCE,URINE CLEAR (CLEAR); BILIRUBIN,URINE NEGATIVE (NEGATIVE); COLOR,URINE LIGHT YELLOW (YELLOW); GLUCOSE, URINE (UA) NEGATIVE (NEGATIVE); KETONES,URINE NEGATIVE (NEGATIVE); LEUKOCYTE ESTERASE ,URINE MODERATE (NEGATIVE); NITRATE,URINE NEGATIVE (NEGATIVE); OCCULT BLOOD,URINE NEGATIVE (NEGATIVE); PH,URINE 6.5 (5.0-8.0); PH,URINE DRUG SCREEN 6.5 (5.0-8.0); PROTEIN,URINE NEGATIVE (NEGATIVE); UROBILINOGEN,URINE <=1.0 mg/dL (<=1.0)
[2024-05-30 19:48] LABS: CREATININE,URINE RANDOM 39.8 mg/dL (30.0-125.0)
[2024-05-30 19:53] LABS: ALCOHOL, URINE DRUG SCREEN NEGATIVE (NEGATIVE); AMPHET/METH SCREEN,URINE NEGATIVE (NEGATIVE); BARBITURATE SCREEN, URINE NEGATIVE (NEGATIVE); BENZODIAZEPINES SCREEN,URINE NEGATIVE (NEGATIVE); CANNABINOID SCREEN,URINE NEGATIVE (NEGATIVE); COCAINE SCREEN,URINE NEGATIVE (NEGATIVE); METHADONE SCREEN, URINE NEGATIVE (NEGATIVE); OPIATE SCREEN,URINE NEGATIVE (NEGATIVE); PHENCYCLIDINE SCREEN,URINE NEGATIVE (NEGATIVE)
[2024-05-30 19:55] VITALS: BP 149/82; PULSE 82; RESP 20; TEMP 97.8; O2SAT 96
[2024-05-30] MEDS: SIMVASTATIN 20 MG TABLET PO SCH (20:00)
[2024-05-30] MEDS: DIVALPROEX SODIUM 500 MG ER TABLET PO SCH (20:03)
[2024-05-30 20:13] LABS: BACTERIA,URINE Rare /HPF (None Seen); RBC,URINE None Seen /HPF (0-2); SQUAMOUS EPITHELIAL CELL,UR Rare /LPF (None Seen)
[2024-05-30 20:26] LABS: GLUCOMETER DEV NAME(LOC) 5N.2C; GLUCOSE,POINT OF CARE 127 MG/DL (70-110)
[2024-05-30 20:41] LABS: GLUCOMETER DEV NAME(LOC) 5N.2C; GLUCOSE,POINT OF CARE 133 MG/DL (70-110)
[2024-05-31 00:13] VITALS: BP 132/76; PULSE 88; RESP 19; TEMP 97.9; O2SAT 95
[2024-05-31] MEDS: QUEtiapine FUMARATE 100 MG TABLET PO PRN (00:59)
[2024-05-31 05:12] VITALS: BP 100/69; PULSE 84; RESP 18; TEMP 97.8; O2SAT 98
[2024-05-31 05:51] LABS: GLUCOMETER DEV NAME(LOC) 5S.2D; GLUCOSE,POINT OF CARE 100 MG/DL (70-110)
[2024-05-31] MEDS: LEVOTHYROXINE SODIUM 50 MCG TABLET PO SCH (06:36)
[2024-05-31 07:21] LABS: ANION GAP 6 mmol/L (8-16); CARBON DIOXIDE 31 mmol/L (22-29); CHLORIDE 102 mmol/L (98-107); CREATININE 0.93 mg/dL (0.60-1.30); GLOMERULAR FILTR. RATE CALC > 60 mL/min (>60); GLUCOSE,RANDOM 92 mg/dL (70-110); POTASSIUM 4.2 mmol/L (3.5-5.1); SODIUM SERUM 139 mmol/L (136-145); UREA NITROGEN, BLOOD 19 mg/dL (7-18)
[2024-05-31 08:00] VITALS: BP 97/61; PULSE 70; RESP 17; TEMP 97.8; O2SAT 94
[2024-05-31 12:15] VITALS: BP 142/62; PULSE 64; RESP 17; TEMP 97.9; O2SAT 93
[2024-05-31 15:45] VITALS: BP 135/70; PULSE 75; RESP 17; TEMP 97.7; O2SAT 93
[2024-05-31 17:25] LABS: GLUCOMETER DEV NAME(LOC) 5S.2D; GLUCOSE,POINT OF CARE 108 MG/DL (70-110)
[2024-05-31 17:36] LABS: GLUCOMETER DEV NAME(LOC) 5N.2C; GLUCOSE,POINT OF CARE 89 MG/DL (70-110)
[2024-05-31 19:46] VITALS: BP 119/65; PULSE 57; RESP 18; TEMP 97.6; O2SAT 95
[2024-05-31 22:15] LABS: GLUCOMETER DEV NAME(LOC) 5S.2D; GLUCOSE,POINT OF CARE 103 MG/DL (70-110)
[2024-06-01] MEDS: ACETAMINOPHEN 325 MG TABLET PO PRN (00:30)
[2024-06-01 00:41] VITALS: BP 143/65; PULSE 62; RESP 18; TEMP 98; O2SAT 94
[2024-06-01 04:32] VITALS: BP 125/76; PULSE 80; RESP 17; TEMP 97.6; O2SAT 95
[2024-06-01 06:50] LABS: GLUCOMETER DEV NAME(LOC) 5S.2D; GLUCOSE,POINT OF CARE 123 MG/DL (70-110)
[2024-06-01 07:47] VITALS: BP 150/91; PULSE 86; RESP 19; TEMP 97.8; O2SAT 94
[2024-06-01 11:40] VITALS: BP 114/74; PULSE 68; RESP 18; O2SAT 92
[2024-06-01 15:22] VITALS: BP 115/65; PULSE 83; RESP 19; TEMP 97.8; O2SAT 93
[2024-06-01 19:34] VITALS: BP 100/52; PULSE 68; RESP 18; TEMP 97.6; O2SAT 92
[2024-06-01 21:06] LABS: GLUCOMETER DEV NAME(LOC) 5N.2C; GLUCOSE,POINT OF CARE 90 MG/DL (70-110)
[2024-06-01 21:15] LABS: GLUCOMETER DEV NAME(LOC) 5S.2D; GLUCOSE,POINT OF CARE 94 MG/DL (70-110)
[2024-06-02 00:28] VITALS: BP 134/78; PULSE 75; RESP 19; TEMP 97.7; O2SAT 95
[2024-06-02 04:34] VITALS: BP 116/73; PULSE 63; RESP 19; TEMP 97.9; O2SAT 94
[2024-06-02 08:18] VITALS: BP 118/74; PULSE 76; RESP 18; TEMP 97.4; O2SAT 92
[2024-06-02 11:45] LABS: GLUCOMETER DEV NAME(LOC) 5S.2D; GLUCOSE,POINT OF CARE 68 MG/DL (70-110)
[2024-06-02 12:15] VITALS: BP 151/81; PULSE 82; RESP 19; TEMP 98.4; O2SAT 95
[2024-06-02 15:17] VITALS: BP 127/77; PULSE 85; RESP 18; TEMP 97.5; O2SAT 95
[2024-06-02 17:01] LABS: GLUCOMETER DEV NAME(LOC) 5N.2C; GLUCOSE,POINT OF CARE 154 MG/DL (70-110)
[2024-06-02 20:12] VITALS: BP 121/73; PULSE 78; RESP 17; TEMP 97.8; O2SAT 94
[2024-06-02 21:06] LABS: GLUCOMETER DEV NAME(LOC) 5N.1D; GLUCOSE,POINT OF CARE 86 MG/DL (70-110)
[2024-06-03] VITALS: BP 105/60; PULSE 77; RESP 18; TEMP 97.6; O2SAT 95
[2024-06-03 04:24] VITALS: BP 100/61; PULSE 78; RESP 18; TEMP 98.1; O2SAT 97
[2024-06-03] MEDS: DiphenhydrAMINE HCL 50 MG/ML VIAL IM ONE (07:43)
[2024-06-03 07:44] LABS: ANION GAP 3 mmol/L (8-16); CALCIUM, TOTAL 9.1 mg/dL (8.8-10.5); CARBON DIOXIDE 34 mmol/L (22-29); CHLORIDE 101 mmol/L (98-107); CREATININE 0.95 mg/dL (0.60-1.30); GLOMERULAR FILTR. RATE CALC > 60 mL/min (>60); GLUCOSE,RANDOM 80 mg/dL (70-110); POTASSIUM 4.4 mmol/L (3.5-5.1); SODIUM SERUM 138 mmol/L (136-145); UREA NITROGEN, BLOOD 25 mg/dL (7-18)
[2024-06-03] MEDS: HALOPERIDOL LACTATE 5 MG/ML VIAL IM ONE (07:44)
[2024-06-03] MEDS: LORazepam 2 MG/ML VIAL IM ONE (07:44)
[2024-06-03 07:58] VITALS: BP 110/66; PULSE 55; RESP 18; TEMP 98; O2SAT 98
[2024-06-03 12:11] LABS: GLUCOMETER DEV NAME(LOC) 5N.1D; GLUCOSE,POINT OF CARE 81 MG/DL (70-110)
[2024-06-03 15:24] LABS: BASOPHILS % (AUTO) 0.5 % (0.0-2.0); EOSINOPHILS % (AUTO) 2.1 % (1.0-6.0); HEMATOCRIT 42.4 % (41-53); HEMOGLOBIN 13.7 g/dL (13.5-17.5); LYMPHOCYTES # (AUTO) 3.7 K/uL (1.0-4.8); LYMPHOCYTES % (AUTO) 39.5 % (22.0-44.0); MEAN CORPUSCULAR HGB CONC 32.3 G/dL (31.0-37.0); MEAN CORPUSCULAR VOLUME 93 fL (80-100); MONOCYTES # (AUTO) 0.7 K/uL (0.1-1.0); MONOCYTES % (AUTO) 7.6 % (2.0-9.0); NEUTROPHILS # (AUTO) 4.7 K/uL (1.8-7.7); NEUTROPHILS % (AUTO) 50.3 % (40.0-70.0); PLATELET COUNT (AUTO) 288 K/uL (150-450); RED BLOOD CELL COUNT(AUTO) 4.56 MIL/uL (4.50-5.90); RED CELL DISTRIBUTION WIDTH 16.4 % (11.5-14.5); WHITE BLOOD COUNT (AUTO) 9.3 K/uL (4.5-11.0)
[2024-06-03 15:36] LABS: ANION GAP 3 mmol/L (8-16); CARBON DIOXIDE 33 mmol/L (22-29); CHLORIDE 102 mmol/L (98-107); CREATININE 1.01 mg/dL (0.60-1.30); GLOMERULAR FILTR. RATE CALC > 60 mL/min (>60); GLUCOSE,RANDOM 81 mg/dL (70-110); POTASSIUM 4.8 mmol/L (3.5-5.1); SODIUM SERUM 138 mmol/L (136-145); UREA NITROGEN, BLOOD 25 mg/dL (7-18)
[2024-06-03 15:38] VITALS: BP 115/66; PULSE 74; RESP 18; TEMP 98; O2SAT 95
[2024-06-03 15:40] LABS: ALANINE AMINOTRANSFERASE 12 U/L (12-78); ALBUMIN 2.7 g/dL (3.4-5.0); ALKALINE PHOSPHATASE 75 U/L (46-116); ASPARTATE AMINOTRANSFERASE 21 U/L (15-37); BILIRUBIN,TOTAL 0.2 mg/dL (0.1-1.0); TOTAL PROTEIN, SERUM 7.2 g/dL (6.4-8.2)
[2024-06-03 16:03] LABS: COVID AG,FIA SOURCE NASAL SWAB
[2024-06-03 16:26] LABS: SARS-COV2 (COVID) ANTIGEN,FIA Negative (Negative)
[2024-06-03 19:38] VITALS: BP 126/96; PULSE 76; RESP 17; TEMP 97.6; O2SAT 95
[2024-06-03] MEDS: QUEtiapine FUMARATE 300 MG TABLET PO SCH (21:34)
[2024-06-03 23:37] VITALS: BP 126/67; PULSE 79; RESP 18; TEMP 97.7; O2SAT 94
[2024-06-04 04:15] LABS: GLUCOMETER DEV NAME(LOC) 5N.2C; GLUCOSE,POINT OF CARE 89 MG/DL (70-110)
[2024-06-04 05:00] VITALS: BP 124/96; PULSE 74; RESP 19; TEMP 97.8; O2SAT 97
[2024-06-04] MEDS: DEXTROSE 50%-WATER 25 GM/50 ML SYRINGE IVP PRN (05:39)
[2024-06-04 06:45] LABS: GLUCOMETER DEV NAME(LOC) 5S.2D; GLUCOSE,POINT OF CARE 65 MG/DL (70-110)
[2024-06-04 06:54] LABS: BASOPHILS % (AUTO) 0.7 % (0.0-2.0); EOSINOPHILS % (AUTO) 2.3 % (1.0-6.0); HEMATOCRIT 45.9 % (41-53); HEMOGLOBIN 14.7 g/dL (13.5-17.5); LYMPHOCYTES % (AUTO) 43.7 % (22.0-44.0); MEAN CORPUSCULAR HEMOGLOBIN 29.9 pg (26.0-34.0); MEAN CORPUSCULAR VOLUME 93 fL (80-100); MONOCYTES # (AUTO) 0.7 K/uL (0.1-1.0); MONOCYTES % (AUTO) 9.6 % (2.0-9.0); NEUTROPHILS % (AUTO) 43.7 % (40.0-70.0); PLATELET COUNT (AUTO) 269 K/uL (150-450); RED BLOOD CELL COUNT(AUTO) 4.93 MIL/uL (4.50-5.90); RED CELL DISTRIBUTION WIDTH 16.4 % (11.5-14.5); WHITE BLOOD COUNT (AUTO) 6.9 K/uL (4.5-11.0)
[2024-06-04 07:25] LABS: ALANINE AMINOTRANSFERASE 14 U/L (12-78); ALBUMIN 2.8 g/dL (3.4-5.0); ALKALINE PHOSPHATASE 77 U/L (46-116); ANION GAP 6 mmol/L (8-16); ASPARTATE AMINOTRANSFERASE 22 U/L (15-37); BILIRUBIN,TOTAL 0.4 mg/dL (0.1-1.0); CALCIUM, TOTAL 9.3 mg/dL (8.8-10.5); CARBON DIOXIDE 32 mmol/L (22-29); CHLORIDE 102 mmol/L (98-107); CREATININE 0.89 mg/dL (0.60-1.30); GLOMERULAR FILTR. RATE CALC > 60 mL/min (>60); GLUCOSE,RANDOM 63 mg/dL (70-110); POTASSIUM 4.6 mmol/L (3.5-5.1); SODIUM SERUM 140 mmol/L (136-145); TOTAL PROTEIN, SERUM 7.5 g/dL (6.4-8.2); UREA NITROGEN, BLOOD 22 mg/dL (7-18); VALPROIC ACID 56 mcg/mL (50-100)
[2024-06-04 07:47] VITALS: BP 125/81; PULSE 85; RESP 19; TEMP 98; O2SAT 96
[2024-06-04] MEDS: QUEtiapine FUMARATE 25 MG TABLET PO SCH (08:23)
[2024-06-04 11:50] LABS: GLUCOMETER DEV NAME(LOC) 5N.2C; GLUCOSE,POINT OF CARE 113 MG/DL (70-110)
[2024-06-04 11:59] VITALS: BP 132/75; PULSE 73; RESP 18; TEMP 97.7; O2SAT 96
[2024-06-04 15:45] VITALS: BP 128/80; PULSE 78; RESP 19; TEMP 98; O2SAT 97
[2024-06-04] MEDS ORDERED: SODIUM CHLORIDE 0.9% 100 ML ONE (17:03)
[2024-06-04 17:35] LABS: GLUCOMETER DEV NAME(LOC) 5N.2C; GLUCOSE,POINT OF CARE 143 MG/DL (70-110)
[2024-06-04 19:53] VITALS: BP 154/90; PULSE 79; RESP 19; TEMP 97.9; O2SAT 95
== END 2024-06-04 20:30 | DRG 871 ==
LOC: EMS 14:11 → EDH 21:18 → 5S 22:22 → 5N 05-28 10:20
PROVIDERS: ADMIT Internal Medicine; ATTEND Internal Medicine
DX: A41.9 Sepsis, unspecified organism (principal); E43 Unspecified severe protein-calorie malnutrition; J96.01 Acute respiratory failure with hypoxia; G93.41 Metabolic encephalopathy; I50.33 Acute on chronic diastolic (congestive) heart failure; J18.9 Pneumonia, unspecified organism; N17.9 Acute kidney failure, unspecified; E87.20 Acidosis, unspecified; J44.0 Chronic obstructive pulmonary disease with (acute) lower respiratory infection; Z68.1 Body mass index [BMI] 19.9 or less, adult; Z20.822 Contact with and (suspected) exposure to COVID-19; E11.9 Type 2 diabetes mellitus without complications; F17.200 Nicotine dependence, unspecified, uncomplicated; I44.1 Atrioventricular block, second degree; E03.9 Hypothyroidism, unspecified; I11.0 Hypertensive heart disease with heart failure; E78.00 Pure hypercholesterolemia, unspecified; E66.01 Morbid (severe) obesity due to excess calories; F20.9 Schizophrenia, unspecified; F32.A Depression, unspecified; G47.00 Insomnia, unspecified; K21.9 Gastro-esophageal reflux disease without esophagitis; Z78.1 Physical restraint status; Z79.899 Other long term (current) drug therapy; Z91.199 Patient's noncompliance with other medical treatment and regimen due to unspecified reason; Z95.0 Presence of cardiac pacemaker
CPT/HCPCS: 71045; 80048; 80053; 80076; 80164; 80307; 81001; 81003; 82570; 82962; 83605; 83615; 83735; 83880; 84145; 84300; 84443; 84484; 85025; 85730; 87040; 87081; 87086; 87804; 93005; 93306; 99285; G0480; J0456; J0696; J1200; J1630; J1644; J1940; J2060; J3486; J3490; J7040; J7050; J7060; 36415-L1; 36415-TC

== ENCOUNTER 2024-09-22 02:40 | Inpatient (IN) | payer MEDICARE, MEDICAID ==
[~2024-09-22] VITALS: Ht 172.7 cm; Wt 57.6 kg
[~2024-09-22 02:40] MED LIST changes: +AMAN-24 PO; +CARB1TAB36 PO; +CHLO100T42 PO; -DIVA-112 PO; +LEVO125T95 PO; -LEVO50TA4 PO; +MELA5TAB40 PO; -SIMV-43 PO; +SIMV5TAB59 PO; +TRIH2TAB3 PO; +VALP250S23 PO; +[UNRECOGNIZED DRUG - CODE] PO
[2024-09-22 04:45] LABS: PLATELET COUNT (AUTO) 273 K/uL (150-450); RED BLOOD CELL COUNT(AUTO) 4.66 MIL/uL (4.50-5.90); RED CELL DISTRIBUTION WIDTH 15.7 % (11.5-14.5); WHITE BLOOD COUNT (AUTO) 9.9 K/uL (4.5-11.0)
[2024-09-22 04:51] LABS: CALCIUM, TOTAL 8.8 mg/dL (8.8-10.5); CREATININE 1.10 mg/dL (0.60-1.30); GLOMERULAR FILTR. RATE CALC > 60 mL/min (>60); GLUCOSE,RANDOM 54 mg/dL (70-110); SODIUM SERUM 141 mmol/L (136-145); UREA NITROGEN, BLOOD 25 mg/dL (7-18)
[2024-09-22 05:24] LABS: COVID AG,FIA SOURCE NASAL SWAB
[2024-09-22 05:33] LABS: PH,URINE DRUG SCREEN 6.0 (5.0-8.0)
[2024-09-22 05:39] LABS: ALCOHOL, URINE DRUG SCREEN NEGATIVE (NEGATIVE); AMPHET/METH SCREEN,URINE NEGATIVE (NEGATIVE); BARBITURATE SCREEN, URINE NEGATIVE (NEGATIVE); CANNABINOID SCREEN,URINE NEGATIVE (NEGATIVE); COCAINE SCREEN,URINE NEGATIVE (NEGATIVE); METHADONE SCREEN, URINE NEGATIVE (NEGATIVE)
[2024-09-22 05:53] LABS: SARS-COV2 (COVID) ANTIGEN,FIA Negative (Negative)
[2024-09-22 07:17] LABS: APPEARANCE,URINE TURBID (CLEAR); GLUCOSE, URINE (UA) NEGATIVE (NEGATIVE); LEUKOCYTE ESTERASE ,URINE LARGE (NEGATIVE); NITRATE,URINE NEGATIVE (NEGATIVE); OCCULT BLOOD,URINE SMALL (NEGATIVE); SPECIFIC GRAVITIY, URINE 1.017 (1.003-1.030)
[2024-09-22 07:20] LABS: SQUAMOUS EPITHELIAL CELL,UR Few /LPF (None Seen)
[2024-09-22] MEDS ORDERED: IBUPROFEN 400 MG TABLET PO PRN (07:30)
[2024-09-22] MEDS ORDERED: LOPERAMIDE HCL 2 MG CAPSULE PO PRN (07:30)
[2024-09-22] MEDS ORDERED: MAG HYDROX/ALUMINUM HYD/SIMETH ES 30 ML SUSPENSION UDCUP PO PRN (07:30)
[2024-09-22] MEDS ORDERED: MAGNESIUM HYDROXIDE SUSPENSION 30 ML UDCUP PO PRN (07:30)
[2024-09-22] MEDS ORDERED: PETROLATUM,WHITE 28 GM JELLY TP PRN (07:30)
[2024-09-22] MEDS ORDERED: NICOTINE 14 MG/24 HOUR PATCH TD PRN (07:30)
[2024-09-22] MEDS ORDERED: ONDANSETRON 4 MG TABLET PO PRN (07:30)
[2024-09-22] MEDS: CARBIDOPA/LEVODOPA 25-100 MG TABLET PO SCH (09:05)
[2024-09-22] MEDS: PANTOPRAZOLE SODIUM 40 MG DR TABLET PO SCH (09:05)
[2024-09-22] MEDS: CEPHALEXIN MONOHYDRATE 500 MG CAPSULE PO SCH (15:27)
[2024-09-22 19:11] LABS: GLUCOMETER DEV NAME(LOC) ERT.7; GLUCOSE,POINT OF CARE 109 MG/DL (70-110)
[2024-09-22] MEDS: ZOLPIDEM TARTRATE 10 MG TABLET PO PRN (19:33)
[2024-09-22] MEDS: ZIPRASIDONE MESYLATE 20 MG/VIAL IM ONE (20:07)
[2024-09-22] MEDS: SIMVASTATIN 20 MG TABLET PO SCH (20:10)
[2024-09-22] MEDS: MELATONIN 5 MG TABLET PO SCH (20:11)
[2024-09-23 00:26] VITALS: BP 120/78; PULSE 76; RESP 16; TEMP 98.6; O2SAT 100
[2024-09-23 00:31] LABS: GLUCOMETER DEV NAME(LOC) BV2X.3; GLUCOSE,POINT OF CARE 136 MG/DL (70-110)
[2024-09-23 08:31] LABS: PLATELET COUNT (AUTO) 336 K/uL (150-450); RED BLOOD CELL COUNT(AUTO) 5.54 MIL/uL (4.50-5.90); RED CELL DISTRIBUTION WIDTH 15.8 % (11.5-14.5); WHITE BLOOD COUNT (AUTO) 11.7 K/uL (4.5-11.0)
[2024-09-23 08:33] VITALS: BP 139/90; PULSE 81; RESP 16; TEMP 98.1; O2SAT 97
[2024-09-23 09:04] LABS: ASPARTATE AMINOTRANSFERASE 24 U/L (15-37); CALCIUM, TOTAL 9.1 mg/dL (8.8-10.5); CHOL/HDL RATIO 3.9 (4.2-7.3); CREATININE 1.11 mg/dL (0.60-1.30); GLOMERULAR FILTR. RATE CALC > 60 mL/min (>60); GLUCOSE,RANDOM 103 mg/dL (70-110); LDL CHOL (CALC.) 95 mg/dL (0-130); SODIUM SERUM 139 mmol/L (136-145); TOTAL PROTEIN, SERUM 8.0 g/dL (6.4-8.2); UREA NITROGEN, BLOOD 22 mg/dL (7-18)
[2024-09-23] MEDS: OLANZapine 5 MG RAPDIS TABLET PO PRN (14:26)
[2024-09-23] MEDS ORDERED: MELATONIN 5 MG TABLET PO PRN (14:30)
[2024-09-23 17:23] VITALS: BP 139/90; PULSE 81; RESP 16; TEMP 98.1; O2SAT 97
[2024-09-23 20:14] VITALS: BP 116/74; PULSE 77; RESP 16; TEMP 97.2; O2SAT 98
[2024-09-23] MEDS: DIVALPROEX SODIUM 500 MG DR TABLET PO SCH (20:24)
[2024-09-24] MEDS: LEVOTHYROXINE SODIUM 125 MCG TABLET PO SCH (07:25)
[2024-09-24] MEDS: SULFAMETHOX/TRIMETH DS 800-160 MG/TABLET PO SCH (16:34)
[2024-09-24 16:48] VITALS: RESP 17
[2024-09-24 20:39] VITALS: BP 121/76; PULSE 84; RESP 17; TEMP 98.9; O2SAT 97
[2024-09-25] VITALS (7 sets, daily range): BP systolic 92–114; BP diastolic 55–66; PULSE 55–72; RESP 16–19; TEMP 97–98.6; O2SAT 95–96
[2024-09-25] MEDS ORDERED: FluPHENAZine HCL 2.5 MG/ML INJ IM ONE (16:19)
[2024-09-25] MEDS: FluPHENAZine HCL 2.5 MG/ML INJ IM ONE (16:31)
[2024-09-25] MEDS: LORazepam 2 MG/ML VIAL IM ONE ×2 (16:32→21:44)
[2024-09-26 03:28] VITALS: BP 108/60; PULSE 64; RESP 18; TEMP 98.4; O2SAT 96
[2024-09-26 08:46] VITALS: BP 126/77; PULSE 67; RESP 19; TEMP 97.9; O2SAT 99
[2024-09-26 20:50] VITALS: BP 109/62; PULSE 66; RESP 16; TEMP 97.3; O2SAT 96
[2024-09-27 08:34] VITALS: RESP 18
[2024-09-27] MEDS ORDERED: LORazepam 2 MG/ML VIAL ONE (14:45)
[2024-09-27] MEDS: LORazepam 2 MG/ML VIAL IM ONE (14:53)
[2024-09-27 20:00] VITALS: BP 108/62; PULSE 80; RESP 18; TEMP 98.7; O2SAT 95
[2024-09-28 09:36] VITALS: BP 119/77; PULSE 74; RESP 18; TEMP 98.4; O2SAT 98
[2024-09-28] MEDS: DOCUSATE SODIUM 100 MG CAPSULE PO PRN (09:55)
[2024-09-28] MEDS ORDERED: LORazepam 2 MG/ML VIAL ONE (11:06)
[2024-09-28] MEDS ORDERED: FluPHENAZine HCL 2.5 MG/ML INJ IM ONE (11:06)
[2024-09-28] MEDS: LORazepam 2 MG/ML VIAL IM ONE (12:50)
[2024-09-28] MEDS: FluPHENAZine HCL 2.5 MG/ML INJ IM ONE (12:51)
[2024-09-28 20:35] VITALS: BP 111/64; PULSE 78; RESP 18; TEMP 98; O2SAT 98
[2024-09-29 08:13] VITALS: BP 101/65; PULSE 74; RESP 17; TEMP 96.9; O2SAT 97
[2024-09-29 08:15] LABS: PLATELET COUNT (AUTO) 253 K/uL (150-450); RED BLOOD CELL COUNT(AUTO) 4.90 MIL/uL (4.50-5.90); RED CELL DISTRIBUTION WIDTH 16.0 % (11.5-14.5); WHITE BLOOD COUNT (AUTO) 10.2 K/uL (4.5-11.0)
[2024-09-29 20:12] VITALS: BP 107/67; PULSE 83; RESP 18; TEMP 98; O2SAT 94
[2024-09-30 08:15] VITALS: BP 117/88; PULSE 85; RESP 16; TEMP 97.5; O2SAT 95
[2024-09-30] MEDS ORDERED: LORazepam 2 MG/ML VIAL ONE (15:29)
[2024-09-30] MEDS: LORazepam 2 MG/ML VIAL IM ONE (16:00)
[2024-09-30 16:23] VITALS: BP 98/64; PULSE 64; RESP 18; TEMP 97.3; O2SAT 96
[2024-09-30 20:10] VITALS: BP 120/67; PULSE 60; RESP 19; TEMP 97.8; O2SAT 97
[2024-10-01] MEDS: ALBUTEROL SULFATE HFA 90 MCG/PUFF 8 GM INHALER IH PRN (09:18)
[2024-10-01 12:25] VITALS: BP 100/68; PULSE 80; RESP 18; TEMP 98.2; O2SAT 97
[2024-10-01 21:02] VITALS: BP 91/55; PULSE 72; RESP 17; TEMP 98.4; O2SAT 97
[2024-10-02 08:18] VITALS: BP 101/60; PULSE 69; RESP 16; TEMP 97.7; O2SAT 97
[2024-10-02 20:39] VITALS: BP 110/68; PULSE 73; RESP 16; TEMP 97.8
[2024-10-02 21:40] VITALS: BP 136/90; PULSE 82; RESP 20; TEMP 98.6; O2SAT 95
[2024-10-02] MEDS: DIVALPROEX SODIUM 500 MG DR TABLET PO SCH (21:47)
[2024-10-02] MEDS: MIDODRINE HCL 5 MG TABLET PO ONE (21:47)
[2024-10-03 00:03] VITALS: BP 125/82; PULSE 76; RESP 18; TEMP 98.2; O2SAT 98
[2024-10-03 08:09] VITALS: BP 116/70; PULSE 70; RESP 16; TEMP 98.2; O2SAT 96
[2024-10-03 20:02] VITALS: BP_SYST 117; BP_DIAS 55; BP_DIAS 60; PULSE 62; RESP 18; TEMP 98; O2SAT 96
[2024-10-03] MEDS: GuaiFENesin/D-METHORPHAN [SUGAR-FREE] 200-20MG/10 ML SYRUP UDCUP PO PRN (22:52)
[2024-10-04 08:13] VITALS: BP 106/62; PULSE 65; RESP 17; TEMP 99; O2SAT 95
[2024-10-04 20:05] VITALS: BP 129/65; PULSE 87; RESP 17; TEMP 98.2; O2SAT 100
[2024-10-05 08:17] VITALS: BP 104/62; PULSE 87; RESP 16; TEMP 98.2; O2SAT 95
[2024-10-05 17:35] VITALS: RESP 17
[2024-10-05] MEDS: ACETAMINOPHEN 325 MG TABLET PO PRN (17:35)
[2024-10-05 20:19] VITALS: BP 107/69; PULSE 68; RESP 16; TEMP 97; O2SAT 98
[2024-10-06 08:10] VITALS: BP 120/82; PULSE 81; RESP 17; TEMP 98.3; O2SAT 96
[2024-10-06 20:25] VITALS: BP_SYST 100; BP_SYST 99; BP_DIAS 65; PULSE 62; RESP 16; TEMP 97.8; O2SAT 97
[2024-10-07 08:32] VITALS: BP 119/88; PULSE 77; RESP 17; TEMP 97.2; O2SAT 96
[2024-10-07 20:01] VITALS: RESP 18
[2024-10-07 20:14] VITALS: BP 132/86; PULSE 74; RESP 29; TEMP 97.4; O2SAT 95
[2024-10-08 08:11] VITALS: BP 115/77; PULSE 85; RESP 16; TEMP 97.9; O2SAT 95
== END 2024-10-08 14:44 | DRG 885 ==
LOC: EMS 02:41 → B2X 22:58
PROVIDERS: ADMIT Psychiatry & Neurology Child & Adolescent Psychiatry; ATTEND Psychiatry & Neurology Child & Adolescent Psychiatry
PROC: GZ56ZZZ Individual Psychotherapy, Supportive (ICD-10-PCS; 2024-09-23)
PROC: GZ58ZZZ Individual Psychotherapy, Cognitive-Behavioral (ICD-10-PCS; 2024-09-23)
PROC: GZ52ZZZ Individual Psychotherapy, Cognitive (ICD-10-PCS; 2024-09-24)
PROC: GZHZZZZ Group Psychotherapy (ICD-10-PCS; principal; 2024-10-04)
DX: F20.0 Paranoid schizophrenia (principal); N39.0 Urinary tract infection, site not specified; G25.9 Extrapyramidal and movement disorder, unspecified; Z16.24 Resistance to multiple antibiotics; Z20.822 Contact with and (suspected) exposure to COVID-19; J44.9 Chronic obstructive pulmonary disease, unspecified; E11.649 Type 2 diabetes mellitus with hypoglycemia without coma; K21.9 Gastro-esophageal reflux disease without esophagitis; E78.00 Pure hypercholesterolemia, unspecified; E03.9 Hypothyroidism, unspecified; G47.00 Insomnia, unspecified; F41.9 Anxiety disorder, unspecified; D72.829 Elevated white blood cell count, unspecified; G20.A1 Parkinson's disease without dyskinesia, without mention of fluctuations; R13.10 Dysphagia, unspecified; I95.9 Hypotension, unspecified; F32.A Depression, unspecified; K59.00 Constipation, unspecified; W19.XXXA Unspecified fall, initial encounter; Y93.89 Activity, other specified; Z91.81 History of falling; Y92.89 Other specified places as the place of occurrence of the external cause; Z88.8 Allergy status to other drugs, medicaments and biological substances; Z91.018 Allergy to other foods; Z78.9 Other specified health status
CPT/HCPCS: 80048; 80053; 80061; 80164; 80307; 81001; 82962; 83036; 84436; 84443; 85025; 87077; 87081; 87086; 87186; 99285; G0480; J1200; J1630; J2060; J3230; J3486; J3490